=== PATIENT | female | born 1975 | race Caucasian/White ===

== ENCOUNTER 2018-04-06 22:39 | Emergency (ER) | payer SELFPAY ==
[2018-04-06 22:48] VITALS: BP 125/98; PULSE 114; RESP 18; O2SAT 100
--- NOTE | 2018-04-06 23:01 | DI.CT.S_ITS ---
PROCEDURE: CT HEAD/BRAIN WO CON INDICATIONS: mental status change TECHNIQUE: Noncontrast 4.5 mm thick angled axial sections acquired from the foramen magnum to the vertex, with coronal and sagittal reformats. For radiation dose reduction, the following was used: automated exposure control, adjustment of mA and/or kV according to patient size. COMPARISON: None. FINDINGS: Image quality: Excellent. CSF spaces: Basal cisterns are patent. No extra-axial fluid collections. Ventricles are normal in size and shape. Brain: No intracranial hemorrhage, mass, or mass effect. Chapman-white matter interface is preserved. Skull and face: Calvarium and visualized facial bones are intact, without suspicious lesions. Sinuses: Visualized sinuses and mastoids are clear. IMPRESSION: 1. No acute intracranial abnormality. Dictated by: Hunter Iglesias M.D. on 04/07/2018 at 9:50 Approved by: Hunter Iglesias M.D. on 04/07/2018 at 9:50
[2018-04-06 23:31] LABS: Add Manual Diff / Slide Review NO; Basophils Percent Auto 0.5 % (0-2); Eosinophils Percent Auto 1.7 % (2-4); Hemoglobin 17.8 g/dL (12.0-16.0); Lymphocytes Percent Auto 33.7 % (25-40); Mean Corpuscular HGB Conc 34.9 % (30-36); Mean Corpuscular Hemoglobin 31.7 PG (26-34); Neutrophils Absolute Auto 5900 /uL (3000-5900); Neutrophils Percent Auto 59.1 % (50-75); Platelet Count 223 X10^3/uL (150-400); Red Cell Distribution Width 13.8 % (11.6-14.8); White Blood Cell Count 9.9 X10^3/uL (4.5-11.0)
[2018-04-06 23:38] LABS: Alanine Aminotransferase 215 IU/L (9-52); Albumin 5.4 g/dL (3.5-5.0); Albumin Globulin Ratio 1.6 (1.0-2.8); Alkaline Phosphatase 94 U/L (38-126); Aspartate Aminotransferase 264 IU/L (14-36); Bilirubin Total 0.6 mg/dL (0.2-1.3); Calcium 9.9 mg/dL (8.4-10.2); Estimated Glomerular Filt Rate > 60.0 mL/min (>60); Globulin 3.4 g/dL (1.7-4.1); Glucose 89 mg/dL (70-100); HEMOLYSIS < 15 (0-50); Potassium 4.1 mmol/L (3.4-5.1); Sodium 150 mmol/L (137-145); Total Protein 8.8 g/dL (6.3-8.2)
[2018-04-06 23:47] LABS: Acetaminophen < 10 ug/dL (10-30); Salicylate < 1.0 mg/dL (<20)
[2018-04-06 23:56] LABS: Ethanol (ETOH) 414 mg/dL
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
[2018-04-07 02:35] VITALS: BP 158/100; PULSE 145; RESP 18; O2SAT 98
--- NOTE | 2018-04-16 21:17 | PC.NURSE ---
Pts son Barry picked her Rx up. Note on bag stated that pt or family member would be picking them up.
== END 2018-04-07 02:00 | disposition home or self-care (01) ==
PROVIDERS: Emergency Provider Emergency Medicine; PCP Physician Assistant
DX: F10.929 Alcohol use, unspecified with intoxication, unspecified (principal)
CPT/HCPCS: 36415; 70450; 80053; 80320; 80329; 85025; 99282; 99284; G0480

== ENCOUNTER → 2018-07-23 10:57 | Outpatient (CLI) | payer OTHER, MEDICAID, SELFPAY ==
[2018-07-23 11:26] LABS: Hemoglobin 15.6 g/dL (12.0-16.0); Mean Corpuscular HGB Conc 33.8 % (30-36); Mean Corpuscular Hemoglobin 30.6 PG (26-34); Mean Corpuscular Volume 90.5 fL (80-100); Platelet Count 268 X10^3/uL (150-400); Red Blood Cell Count 5.09 X10^6/uL (4.0-5.2); Red Cell Distribution Width 13.3 % (11.6-14.8); White Blood Cell Count 9.4 X10^3/uL (4.5-11.0)
[2018-07-23 11:44] LABS: Alanine Aminotransferase 24 IU/L (9-52); Albumin 5.1 g/dL (3.5-5.0); Albumin Globulin Ratio 1.8 (1.0-2.8); Alkaline Phosphatase 74 U/L (38-126); Aspartate Aminotransferase 21 IU/L (14-36); BUN Creatinine Ratio 15.7 (6-22); Bilirubin Total 0.3 mg/dL (0.2-1.3); Blood Urea Nitrogen 11 mg/dL (7-17); Calcium 10.1 mg/dL (8.4-10.2); Carbon Dioxide 33 mmol/L (22-32); Chloride 103 mmol/L (98-107); Estimated Glomerular Filt Rate > 60.0 mL/min (>60); Globulin 2.8 g/dL (1.7-4.1); Glucose 93 mg/dL (70-100); HEMOLYSIS < 15 (0-50); Potassium 4.3 mmol/L (3.4-5.1); Sodium 145 mmol/L (137-145); Total Protein 7.9 g/dL (6.3-8.2)
[2018-07-23 11:45] LABS: Neutrophils Absolute Manual 5264 /uL (3000-5900); Total Cells Counted 100
[2018-07-23 11:46] LABS: RBC Morphology Normal Morphology
[2018-07-23 18:39] LABS: Hepatitis B Surface Antigen NEGATIVE s/c (NEGATIVE)
[2018-07-23 18:57] LABS: HIV 1 and 2 Antibody NEGATIVE (NEGATIVE); Hep C Virus Ab w/Reflex Quant NEGATIVE s/c (NEGATIVE)
== END ==
PROVIDERS: PCP Physician Assistant; Visit Provider Nurse Practitioner Family
DX: Z77.21 Contact with and (suspected) exposure to potentially hazardous body fluids (principal)
CPT/HCPCS: 36415; 80053; 85025; 86703; 86803; 87340

== ENCOUNTER 2018-08-25 13:29 | Emergency (ER) | payer OTHER, MEDICAID, SELFPAY ==
[2018-08-25 13:49] VITALS: BP 140/94; PULSE 134; RESP 20; TEMP 37.9; O2SAT 96; BMI 18.8
--- NOTE | 2018-08-25 14:07 | ED.ABDPAIN ---
HPI - Abdominal Pain <CRICKET Kaur - Last Filed: 08/25/18 22:13> General Chief Complaint: Abdominal Pain Stated Complaint: lower left sided pain Time Seen by Provider: 08/25/18 14:07 Source: patient Mode of arrival: ambulatory Limitations: no limitations History of Present Illness HPI narrative: 42-year-old female with history of alcohol abuse and is an everyday smoker here for complaint of pain into her left lower abdominal area over the past 4 days. She has also had some nausea. She states that the pain is better after drinking alcohol. She denies any stressors of the pain. Last bowel movement was earlier today and was unremarkable. She denies any urinary symptoms. She reports decreased p.o. fluid intake. no vomiting. She denies any flank pain. No abnormal vaginal discharge. She states that she did not know she had a fever until she came here. No other concerns or complaints. Last alcohol and p.o. intake was just prior to arrival where she states she only drank small amount of alcohol. Related Data Home Medications Medication Instructions Recorded Confirmed diphenhydramine HCl [Banophen] 1 cap PO DAILY 08/25/18 Previous Rx's Medication Instructions Recorded gabapentin 600 mg tablet See Label Instructions PO .COMPLEX 07/30/18 #150 tab cephalexin 500 mg PO Q12H #14 cap 08/25/18 Allergies Allergy/AdvReac Type Severity Reaction Status Date / Time Sulfa (Sulfonamide Allergy Verified 08/25/18 13:53 Antibiotics) Review of Systems <CRICKET Kaur - Last Filed: 08/25/18 22:13> Constitutional Denies chills, Denies fever(s), Denies lethargy and Denies weakness Eyes Denies change in vision, Denies eye discharge, Denies irritation and Denies loss of vision ENT Ears, Nose, Mouth, and Throat: Denies change in voice, Denies neck pain and Denies sore throat Cardiovascular Denies chest pain, Denies irregular heart rhythm, Denies lightheadedness, Denies palpitations, Denies dyspnea, Denies dyspnea on exertion and Denies orthopnea Respiratory Denies cough, Denies dyspnea, Denies dyspnea on exertion and Denies wheezing Gastrointestinal Gastrointestinal: Reports abdominal pain Genitourinary Denies hematuria, Denies flank pain, Denies urinary incontinence and Denies urinary urgency Musculoskeletal Denies neck pain Integumentary/Breasts Denies pruritus, Denies erythema, Denies rash and Denies wounds Neurologic Denies confusion, Denies loss of vision and Denies weakness Psychiatric Denies anxiety, Denies confusion, Denies depression, Denies homicidal ideation and Denies suicidal ideation Endocrine Denies palpitations Allergic/Immunologic Denies wheezing Exam <CRICKET Kaur - Last Filed: 08/25/18 22:13> Initial Vital Signs Initial Vital Signs: Vital Signs Temperature 100.3 F H 08/25/18 13:49 Pulse Rate 134 H 08/25/18 13:49 Respiratory Rate 20 08/25/18 13:49 Blood Pressure 140/94 H 08/25/18 13:49 Pulse Oximetry 96 08/25/18 13:49 Const General: cooperative and well developed Nutritional Appearance: well nourished Orientation: alert, awake, oriented x3 and not confused HENAR Mouth: oral mucosae normal and moist mucous membranes Eyes General: appearance normal, both eyes and all related structures Eyelids: eyelids normal Conjunctivae: conjunctivae normal Sclera: sclerae normal Pupils: PERRL EOM: EOM intact bilaterally Resp Effort & Inspection: normal respiratory effort, able to speak in complete sentences, no respiratory distress and no use of accessory muscles Auscultation: clear to auscultation bilaterally, no rales, no rhonchi and no wheezes Cardio Rate: regular rate Rhythm: regular rhythm Heart Sounds: no click, no gallops, no murmurs and no rubs Pulses: normal peripheral pulses GI Inspection: non-distended Palpation: soft, no hepatosplenomegaly, No guarding, No pulsatile mass and tender ( left lower quadrant) Auscultation: normal bowel sounds General: No CVA tenderness Neuro General: alert, oriented x3, gait normal and no focal motor deficits Speech: speech normal <Christian Conteh DO - Last Filed: 08/26/18 07:16> Initial Vital Signs Initial Vital Signs: Vital Signs Temperature 100.3 F H 08/25/18 13:49 Pulse Rate 134 H 08/25/18 13:49 Respiratory Rate 20 08/25/18 13:49 Blood Pressure 140/94 H 08/25/18 13:49 Pulse Oximetry 96 08/25/18 13:49 Course <CRICKET Kaur - Last Filed: 08/25/18 22:13> Orders Ordered: Discontinued Medications Sodium Chloride (Normal Saline 0.9%) 1,000 mls @ 1,000 mls/hr IV BOLUS ONE Stop: 08/25/18 14:56 Last Infusion: 08/25/18 15:48 Dose: 0 mls/hr Admin: 08/25/18 14:18 Dose: 1,000 mls/hr Sodium Chloride (Normal Saline 0.9%) 1,000 mls @ 1,000 mls/hr IV BOLUS ONE Stop: 08/25/18 16:43 Last Infusion: 08/25/18 16:49 Dose: 0 mls/hr Admin: 08/25/18 16:05 Dose: 1,000 mls/hr Ceftriaxone Sodium/Dextrose (Rocephin) 1 gm in 50 mls @ 100 mls/hr IV NOW ONE Stop: 08/25/18 17:08 Last Infusion: 08/25/18 18:01 Dose: 0 mls/hr Admin: 08/25/18 17:01 Dose: 100 mls/hr Sodium Chloride (Normal Saline 0.9%) 1,000 mls @ 1,000 mls/hr IV BOLUS ONE Stop: 08/25/18 17:58 Last Infusion: 08/25/18 18:01 Dose: 0 mls/hr Admin: 08/25/18 17:01 Dose: 1,000 mls/hr Ketorolac Tromethamine (Toradol) 30 mg IV NOW ONE Stop: 08/25/18 16:04 Last Admin: 08/25/18 16:04 Dose: 30 mg Ondansetron HCl (Zofran) 4 mg IV NOW ONE Stop: 08/25/18 14:15 Last Admin: 08/25/18 14:17 Dose: 4 mg Vital Signs - 8 hr 08/25/18 14:57 08/25/18 17:00 08/25/18 17:59 Temperature 99.8 F H Pulse Rate 104 H 110 H 113 H Respiratory Rate 20 Blood Pressure [Right Arm] 129/84 129/79 150/87 H Pulse Oximetry 105 H 97 99 08/25/18 18:01 Temperature Pulse Rate Respiratory Rate 24 Blood Pressure [Right Arm] Pulse Oximetry <Christian Conteh DO - Last Filed: 08/26/18 07:16> Orders Ordered: Discontinued Medications Sodium Chloride (Normal Saline 0.9%) 1,000 mls @ 1,000 mls/hr IV BOLUS ONE Stop: 08/25/18 14:56 Last Infusion: 08/25/18 15:48 Dose: 0 mls/hr Admin: 08/25/18 14:18 Dose: 1,000 mls/hr Sodium Chloride (Normal Saline 0.9%) 1,000 mls @ 1,000 mls/hr IV BOLUS ONE Stop: 08/25/18 16:43 Last Infusion: 08/25/18 16:49 Dose: 0 mls/hr Admin: 08/25/18 16:05 Dose: 1,000 mls/hr Ceftriaxone Sodium/Dextrose (Rocephin) 1 gm in 50 mls @ 100 mls/hr IV NOW ONE Stop: 08/25/18 17:08 Last Infusion: 08/25/18 18:01 Dose: 0 mls/hr Admin: 08/25/18 17:01 Dose: 100 mls/hr Sodium Chloride (Normal Saline 0.9%) 1,000 mls @ 1,000 mls/hr IV BOLUS ONE Stop: 08/25/18 17:58 Last Infusion: 08/25/18 18:01 Dose: 0 mls/hr Admin: 08/25/18 17:01 Dose: 1,000 mls/hr Ketorolac Tromethamine (Toradol) 30 mg IV NOW ONE Stop: 08/25/18 16:04 Last Admin: 08/25/18 16:04 Dose: 30 mg Ondansetron HCl (Zofran) 4 mg IV NOW ONE Stop: 08/25/18 14:15 Last Admin: 08/25/18 14:17 Dose: 4 mg Vital Signs - 8 hr 08/25/18 14:57 08/25/18 17:00 08/25/18 17:59 Temperature 99.8 F H Pulse Rate 104 H 110 H 113 H Respiratory Rate 20 Blood Pressure [Right Arm] 129/84 129/79 150/87 H Pulse Oximetry 105 H 97 99 08/25/18 18:01 Temperature Pulse Rate Respiratory Rate 24 Blood Pressure [Right Arm] Pulse Oximetry MDM - Abdominal Pain <CRICKET Kaur - Last Filed: 08/25/18 22:13> Differential Diagnosis Differential diagnosis: Likely abdominal pain Lab Data Result diagrams: 08/25/18 14:05 08/25/18 14:05 Lab Results 08/25/18 08/25/18 08/25/18 Range/Units 14:05 14:05 14:05 WBC 10.1 (4.5-11.0) X10^3/uL RBC 5.48 H (4.0-5.2) X10^6/uL Hgb 16.5 H (12.0-16.0) g/dL Hct 48.7 H (36-46) % MCV 88.8 (80-100) fL MCH 30.0 (26-34) PG MCHC 33.8 (30-36) % RDW 13.5 (11.6-14.8) % Plt Count 336 (150-400) X10^3/uL Neut % (Auto) 75.5 H (50-75) % Lymph % (Auto) 19.4 L (25-40) % Brooks % (Auto) 4.2 (3-14) % Eos % (Auto) 0.1 L (2-4) % Baso % (Auto) 0.8 (0-2) % Neut # (Auto) 7600 H (2705-4109) /uL PT 10.0 L (10.1-12.7) SECONDS INR 0.9 (0.9-1.3) APTT 26 L (26.4-36.2) SECONDS Sodium (137-145) mmol/L Potassium (3.4-5.1) mmol/L Chloride (98-107) mmol/L Carbon Dioxide (22-32) mmol/L BUN (7-17) mg/dL Creatinine (0.52-1.04) mg/dL Estimated GFR (>60) mL/min BUN/Creatinine Ratio (6-22) Glucose (70-100) mg/dL Lactate (0.7-2.1) mmol/L Calcium (8.4-10.2) mg/dL Total Bilirubin (0.2-1.3) mg/dL AST (14-36) IU/L ALT (9-52) IU/L Alkaline Phosphatase (38-126) U/L Total Protein (6.3-8.2) g/dL Albumin (3.5-5.0) g/dL Globulin (1.7-4.1) g/dL Albumin/Globulin Ratio (1.0-2.8) Lipase (23-300) U/L Procalcitonin < 0.05 (<0.5) ng/mL Urine RBC (0-5/HPF) Urine WBC (0-5/HPF) Ur Squamous Epith Cells Amorphous Sediment Urine Bacteria (None) Granular Casts (None) Ur Culture Indicated? Micro UA Comment Ethyl Alcohol mg/dL 08/25/18 08/25/18 08/25/18 Range/Units 14:05 14:05 14:05 WBC (4.5-11.0) X10^3/uL RBC (4.0-5.2) X10^6/uL Hgb (12.0-16.0) g/dL Hct (36-46) % MCV (80-100) fL MCH (26-34) PG MCHC (30-36) % RDW (11.6-14.8) % Plt Count (150-400) X10^3/uL Neut % (Auto) (50-75) % Lymph % (Auto) (25-40) % Brooks % (Auto) (3-14) % Eos % (Auto) (2-4) % Baso % (Auto) (0-2) % Neut # (Auto) (8172-2976) /uL PT (10.1-12.7) SECONDS INR (0.9-1.3) APTT (26.4-36.2) SECONDS Sodium 144 (137-145) mmol/L Potassium 4.1 (3.4-5.1) mmol/L Chloride 101 (98-107) mmol/L Carbon Dioxide 18 L (22-32) mmol/L BUN 16 (7-17) mg/dL Creatinine 0.70 (0.52-1.04) mg/dL Estimated GFR > 60.0 (>60) mL/min BUN/Creatinine Ratio 22.9 H (6-22) Glucose 129 H (70-100) mg/dL Lactate 4.6 H (0.7-2.1) mmol/L Calcium 9.1 (8.4-10.2) mg/dL Total Bilirubin 0.8 (0.2-1.3) mg/dL AST 48 H (14-36) IU/L ALT 30 (9-52) IU/L Alkaline Phosphatase 81 (38-126) U/L Total Protein 8.0 (6.3-8.2) g/dL Albumin 5.4 H (3.5-5.0) g/dL Globulin 2.6 (1.7-4.1) g/dL Albumin/Globulin Ratio 2.1 (1.0-2.8) Lipase 84 (23-300) U/L Procalcitonin (<0.5) ng/mL Urine RBC (0-5/HPF) Urine WBC (0-5/HPF) Ur Squamous Epith Cells Amorphous Sediment Urine Bacteria (None) Granular Casts (None) Ur Culture Indicated? Micro UA Comment Ethyl Alcohol 268 mg/dL 08/25/18 08/25/18 Range/Units 16:50 Unknown WBC (4.5-11.0) X10^3/uL RBC (4.0-5.2) X10^6/uL Hgb (12.0-16.0) g/dL Hct (36-46) % MCV (80-100) fL MCH (26-34) PG MCHC (30-36) % RDW (11.6-14.8) % Plt Count (150-400) X10^3/uL Neut % (Auto) (50-75) % Lymph % (Auto) (25-40) % Brooks % (Auto) (3-14) % Eos % (Auto) (2-4) % Baso % (Auto) (0-2) % Neut # (Auto) (2180-3862) /uL PT (10.1-12.7) SECONDS INR (0.9-1.3) APTT (26.4-36.2) SECONDS Sodium (137-145) mmol/L Potassium (3.4-5.1) mmol/L Chloride (98-107) mmol/L Carbon Dioxide (22-32) mmol/L BUN (7-17) mg/dL Creatinine (0.52-1.04) mg/dL Estimated GFR (>60) mL/min BUN/Creatinine Ratio (6-22) Glucose (70-100) mg/dL Lactate 3.7 H (0.7-2.1) mmol/L Calcium (8.4-10.2) mg/dL Total Bilirubin (0.2-1.3) mg/dL AST (14-36) IU/L ALT (9-52) IU/L Alkaline Phosphatase (38-126) U/L Total Protein (6.3-8.2) g/dL Albumin (3.5-5.0) g/dL Globulin (1.7-4.1) g/dL Albumin/Globulin Ratio (1.0-2.8) Lipase (23-300) U/L Procalcitonin (<0.5) ng/mL Urine RBC 0-1/hpf (0-5/HPF) Urine WBC 5-10/hpf H (0-5/HPF) Ur Squamous Epith Cells 5-10 /hpf H Amorphous Sediment 1+ Urine Bacteria Few (2-10) H (None) Granular Casts 5-10/lpf (None) Ur Culture Indicated? Specimen cultured Micro UA Comment Not Reportable Ethyl Alcohol mg/dL Point of care testing: Urine Dip Bedside Urine Glucose Negative Bedside Urine Bilirubin - Negative Bedside Urine Ketone ++ 40 Urine Specific [place] 1.030 Bedside Urine Occult Blood +/- Bedside Urine pH 6.0 Bedside Urine Protein + 30 Bedside Urine Urobilinogen - Negative Bedside Urine Nitrite - Negative Bedside Urine Leukocytes - Negative Esterase MDM Narrative Medical decision making narrative: CT of the abdomen shows a fatty infiltrate to the liver however is negative for any acute findings. CBC shows elevated H&H otherwise is unremarkable. Chem panel shows elevated lactate with negative procalcitonin. AST is mildly elevated at 48. urinalysis indicates urinary tract infection.. She was given fluids in the emergency room which help normalize her heart rate. after fluids repeat lactate was obtained and was decreased to 3.7. Due to no elevated white count and negative procalcitonin along with negative CT doubtful that this is septic. laboratory results indicate dehydration which is most likely due to alcohol use. She is given Rocephin to treat urinary tract infection in the emergency room. offered admission to patient due to elevated heart rate fever and elevated lactate she states she would rather go home. She is also prescribed Keflex orally. Follow up with primary care for the next 2 days for re-evaluation. Differential for left lower quadrant abdominal pain is due to viral illness. For any worsening symptoms return to the emergency room. <Christian Conteh DO - Last Filed: 08/26/18 07:16> Lab Data Lab Results 08/25/18 08/25/18 08/25/18 Range/Units 14:05 14:05 14:05 WBC 10.1 (4.5-11.0) X10^3/uL RBC 5.48 H (4.0-5.2) X10^6/uL Hgb 16.5 H (12.0-16.0) g/dL Hct 48.7 H (36-46) % MCV 88.8 (80-100) fL MCH 30.0 (26-34) PG MCHC 33.8 (30-36) % RDW 13.5 (11.6-14.8) % Plt Count 336 (150-400) X10^3/uL Neut % (Auto) 75.5 H (50-75) % Lymph % (Auto) 19.4 L (25-40) % Brooks % (Auto) 4.2 (3-14) % Eos % (Auto) 0.1 L (2-4) % Baso % (Auto) 0.8 (0-2) % Neut # (Auto) 7600 H (7073-7885) /uL PT 10.0 L (10.1-12.7) SECONDS INR 0.9 (0.9-1.3) APTT 26 L (26.4-36.2) SECONDS Sodium (137-145) mmol/L Potassium (3.4-5.1) mmol/L Chloride (98-107) mmol/L Carbon Dioxide (22-32) mmol/L BUN (7-17) mg/dL Creatinine (0.52-1.04) mg/dL Estimated GFR (>60) mL/min BUN/Creatinine Ratio (6-22) Glucose (70-100) mg/dL Lactate (0.7-2.1) mmol/L Calcium (8.4-10.2) mg/dL Total Bilirubin (0.2-1.3) mg/dL AST (14-36) IU/L ALT (9-52) IU/L Alkaline Phosphatase (38-126) U/L Total Protein (6.3-8.2) g/dL Albumin (3.5-5.0) g/dL Globulin (1.7-4.1) g/dL Albumin/Globulin Ratio (1.0-2.8) Lipase (23-300) U/L Procalcitonin < 0.05 (<0.5) ng/mL Urine RBC (0-5/HPF) Urine WBC (0-5/HPF) Ur Squamous Epith Cells Amorphous Sediment Urine Bacteria (None) Granular Casts (None) Ur Culture Indicated? Micro UA Comment Ethyl Alcohol mg/dL 08/25/18 08/25/18 08/25/18 Range/Units 14:05 14:05 14:05 WBC (4.5-11.0) X10^3/uL RBC (4.0-5.2) X10^6/uL Hgb (12.0-16.0) g/dL Hct (36-46) % MCV (80-100) fL MCH (26-34) PG MCHC (30-36) % RDW (11.6-14.8) % Plt Count (150-400) X10^3/uL Neut % (Auto) (50-75) % Lymph % (Auto) (25-40) % Brooks % (Auto) (3-14) % Eos % (Auto) (2-4) % Baso % (Auto) (0-2) % Neut # (Auto) (2206-4589) /uL PT (10.1-12.7) SECONDS INR (0.9-1.3) APTT (26.4-36.2) SECONDS Sodium 144 (137-145) mmol/L Potassium 4.1 (3.4-5.1) mmol/L Chloride 101 (98-107) mmol/L Carbon Dioxide 18 L (22-32) mmol/L BUN 16 (7-17) mg/dL Creatinine 0.70 (0.52-1.04) mg/dL Estimated GFR > 60.0 (>60) mL/min BUN/Creatinine Ratio 22.9 H (6-22) Glucose 129 H (70-100) mg/dL Lactate 4.6 H (0.7-2.1) mmol/L Calcium 9.1 (8.4-10.2) mg/dL Total Bilirubin 0.8 (0.2-1.3) mg/dL AST 48 H (14-36) IU/L ALT 30 (9-52) IU/L Alkaline Phosphatase 81 (38-126) U/L Total Protein 8.0 (6.3-8.2) g/dL Albumin 5.4 H (3.5-5.0) g/dL Globulin 2.6 (1.7-4.1) g/dL Albumin/Globulin Ratio 2.1 (1.0-2.8) Lipase 84 (23-300) U/L Procalcitonin (<0.5) ng/mL Urine RBC (0-5/HPF) Urine WBC (0-5/HPF) Ur Squamous Epith Cells Amorphous Sediment Urine Bacteria (None) Granular Casts (None) Ur Culture Indicated? Micro UA Comment Ethyl Alcohol 268 mg/dL 08/25/18 08/25/18 Range/Units 16:50 Unknown WBC (4.5-11.0) X10^3/uL RBC (4.0-5.2) X10^6/uL Hgb (12.0-16.0) g/dL Hct (36-46) % MCV (80-100) fL MCH (26-34) PG MCHC (30-36) % RDW (11.6-14.8) % Plt Count (150-400) X10^3/uL Neut % (Auto) (50-75) % Lymph % (Auto) (25-40) % Brooks % (Auto) (3-14) % Eos % (Auto) (2-4) % Baso % (Auto) (0-2) % Neut # (Auto) (6568-4063) /uL PT (10.1-12.7) SECONDS INR (0.9-1.3) APTT (26.4-36.2) SECONDS Sodium (137-145) mmol/L Potassium (3.4-5.1) mmol/L Chloride (98-107) mmol/L Carbon Dioxide (22-32) mmol/L BUN (7-17) mg/dL Creatinine (0.52-1.04) mg/dL Estimated GFR (>60) mL/min BUN/Creatinine Ratio (6-22) Glucose (70-100) mg/dL Lactate 3.7 H (0.7-2.1) mmol/L Calcium (8.4-10.2) mg/dL Total Bilirubin (0.2-1.3) mg/dL AST (14-36) IU/L ALT (9-52) IU/L Alkaline Phosphatase (38-126) U/L Total Protein (6.3-8.2) g/dL Albumin (3.5-5.0) g/dL Globulin (1.7-4.1) g/dL Albumin/Globulin Ratio (1.0-2.8) Lipase (23-300) U/L Procalcitonin (<0.5) ng/mL Urine RBC 0-1/hpf (0-5/HPF) Urine WBC 5-10/hpf H (0-5/HPF) Ur Squamous Epith Cells 5-10 /hpf H Amorphous Sediment 1+ Urine Bacteria Few (2-10) H (None) Granular Casts 5-10/lpf (None) Ur Culture Indicated? Specimen cultured Micro UA Comment Not Reportable Ethyl Alcohol mg/dL Point of care testing: Urine Dip Bedside Urine Glucose Negative Bedside Urine Bilirubin - Negative Bedside Urine Ketone ++ 40 Urine Specific [place] 1.030 Bedside Urine Occult Blood +/- Bedside Urine pH 6.0 Bedside Urine Protein + 30 Bedside Urine Urobilinogen - Negative Bedside Urine Nitrite - Negative Bedside Urine Leukocytes - Negative Esterase Discharge Plan Departure Patient Disposition: Home Clinical Impression: Urinary tract infection Discharge Date/Time: 08/25/18 18:01 Interventions: ED Discharge Assessment Last Done: 08/25/18 17:59 Instructions: DI for Abdominal Pain-Adult Activity Restrictions/Additional Instructions: Laboratory results indicate dehydration. year given fluids here in the emergency room. Recommend drinking plenty of fluids not containing alcohol and reducing alcohol intake. urinalysis indicates urinary tract infection. You have been placed on antibiotics use as directed. follow up with her primary care provider in the next couple of days for re-evaluation. If any worsening symptoms return to the emergency room. Use ibuprofen as needed for any discomfort or fever. Prescriptions: New cephalexin 500 mg capsule 500 mg PO Q12H Qty: 14 RF: 0 No Action gabapentin [Neurontin] 600 mg tablet See Label Instructions PO .COMPLEX Qty: 150 RF: 3 diphenhydramine HCl [Banophen] 50 mg capsule 1 cap PO DAILY RF: 0 Referrals: Daphne Calvillo PA-C [[facility]] - <Christian Conteh DO - Last Filed: 08/26/18 07:16> Cosign ED Attending Cosignature Attestation: I was available for consultation during this patient's emergency department encounter
[2018-08-25] MEDS: ONDANSETRON 4 MG/2 ML INJ IV (14:17)
[2018-08-25] MEDS: SODIUM CHLORIDE 0.9% 1,000 ML 1000 ML IV ×3 (14:18→17:01)
[2018-08-25 14:27] LABS: Add Manual Diff / Slide Review NO; Basophils Percent Auto 0.8 % (0-2); Eosinophils Percent Auto 0.1 % (2-4); Hematocrit 48.7 % (36-46); Hemoglobin 16.5 g/dL (12.0-16.0); Lymphocytes Percent Auto 19.4 % (25-40); Mean Corpuscular HGB Conc 33.8 % (30-36); Mean Corpuscular Volume 88.8 fL (80-100); Monocytes Percent Auto 4.2 % (3-14); Neutrophils Absolute Auto 7600 /uL (3000-5900); Neutrophils Percent Auto 75.5 % (50-75); Platelet Count 336 X10^3/uL (150-400); Red Blood Cell Count 5.48 X10^6/uL (4.0-5.2); Red Cell Distribution Width 13.5 % (11.6-14.8); White Blood Cell Count 10.1 X10^3/uL (4.5-11.0)
[2018-08-25 14:30] LABS: INR 0.9 (0.9-1.3)
[2018-08-25 14:33] LABS: PTT Partial Thromboplastin Tim 26 SECONDS (26.4-36.2)
[2018-08-25 14:35] LABS: Ethanol (ETOH) 268 mg/dL; Lactate (Lactic Acid) 4.6 mmol/L (0.7-2.1)
[2018-08-25 14:39] LABS: Alanine Aminotransferase 30 IU/L (9-52); Albumin 5.4 g/dL (3.5-5.0); Albumin Globulin Ratio 2.1 (1.0-2.8); Alkaline Phosphatase 81 U/L (38-126); Aspartate Aminotransferase 48 IU/L (14-36); BUN Creatinine Ratio 22.9 (6-22); Bilirubin Total 0.8 mg/dL (0.2-1.3); Blood Urea Nitrogen 16 mg/dL (7-17); Calcium 9.1 mg/dL (8.4-10.2); Carbon Dioxide 18 mmol/L (22-32); Chloride 101 mmol/L (98-107); Estimated Glomerular Filt Rate > 60.0 mL/min (>60); Globulin 2.6 g/dL (1.7-4.1); Glucose 129 mg/dL (70-100); HEMOLYSIS 31 (0-50); Lipase 84 U/L (23-300); Potassium 4.1 mmol/L (3.4-5.1); Sodium 144 mmol/L (137-145)
--- NOTE | 2018-08-25 14:51 | DI.CT.S_ITS ---
PROCEDURE: CT ABDOMEN PELVIS W CON INDICATIONS: left lower quadrant pain TECHNIQUE: After the administration of intravenous contrast, 5 mm thick sections acquired from the diaphragm to the symphysis. 5 mm coronal and sagittal reformats were acquired. For radiation dose reduction, the following was used: automated exposure control, adjustment of mA and/or kV according to patient size. COMPARISON: [facility], , CT ABDOMEN/PELVIS WITH CONTRAST, 06/09/2006, 12:43. FINDINGS: Image quality: Excellent. ABDOMEN: Lung bases: Lung bases are clear. Heart size is normal. Solid organs: Liver is normal in size and enhancement. The liver appears fatty infiltrated. Gallbladder appears normal. Biliary system is non dilated. Pancreas enhances normally. Spleen is normal in size and enhancement. No adrenal nodules. Kidneys demonstrate normal size and enhancement, without hydronephrosis. Peritoneum and bowel: Bowel loops demonstrate normal wall thickness and caliber. No free fluid or air. Nodes and vessels: No retroperitoneal or mesenteric adenopathy by size criteria. Aorta and inferior vena cava are normal in size. Miscellaneous: No ventral hernias. PELVIS: Genitourinary: Bladder wall thickness is normal. The uterus and ovaries are not visualized. Miscellaneous: No inguinal hernias or adenopathy. Bones: No suspicious bony lesions. No vertebral body compression fractures. IMPRESSION: Apparent fatty infiltration within the liver but no sign of cirrhosis or portal hypertension is found. No ascites is seen. Within the pelvis no adnexal cystic or solid mass is found. The uterus is not visualized as a discrete entity nor are the ovaries bilaterally. A source of current reported left lower quadrant pain is not found. Dictated by: Ken Arguelles M.D. on 08/25/2018 at 15:09 Approved by: Ken Arguelles M.D. on 08/25/2018 at 15:13
[2018-08-25 14:57] VITALS: BP 129/84; PULSE 104; RESP 20; TEMP 37.7; O2SAT 105
[2018-08-25 14:59] LABS: Procalcitonin < 0.05 ng/mL (<0.5)
--- NOTE | 2018-08-25 16:02 | PC.NURSE ---
nausea improved. Continues to have abd pain. Medicated w/ toradol IV.
[2018-08-25 16:04] LABS: Bacteria Urine Few (2-10); Granular Casts Urine 5-10/LPF; RBC Urine 0-1/HPF (0-5/HPF); Squamous Epithelial Cell Urine 5-10 /HPF; WBC Urine 5-10/HPF (0-5/HPF)
[2018-08-25] MEDS: KETOROLAC 60 MG/2 ML VIAL 30 MG IV (16:04)
[2018-08-25 16:05] LABS: Amorphous Sediment Urine 1+; Culture Indicated Urine Specimen Cultured
[2018-08-25 17:00] VITALS: BP 129/79; PULSE 110; O2SAT 97
[2018-08-25] MEDS: CEFTRIAXONE 1 GM/50 ML FROZ.PIGGY IV (17:01)
[2018-08-25 17:12] LABS: Lactate (Lactic Acid) 3.7 mmol/L (0.7-2.1)
--- NOTE | 2018-08-25 17:31 | ED_ITS ---
HPI - Abdominal Pain <CRICKET Kaur - Last Filed: 08/25/18 22:13> General Chief Complaint: Abdominal Pain Stated Complaint: lower left sided pain Time Seen by Provider: 08/25/18 14:07 Source: patient Mode of arrival: ambulatory Limitations: no limitations History of Present Illness HPI narrative: 42-year-old female with history of alcohol abuse and is an everyday smoker here for complaint of pain into her left lower abdominal area over the past 4 days. She has also had some nausea. She states that the pain is better after drinking alcohol. She denies any stressors of the pain. Last bowel movement was earlier today and was unremarkable. She denies any urinary symptoms. She reports decreased p.o. fluid intake. no vomiting. She denies any flank pain. No abnormal vaginal discharge. She states that she did not know she had a fever until she came here. No other concerns or complaints. Last alcohol and p.o. intake was just prior to arrival where she states she only drank small amount of alcohol. Related Data Home Medications Medication Instructions Recorded Confirmed diphenhydramine HCl [Banophen] 1 cap PO DAILY 08/25/18 Previous Rx's Medication Instructions Recorded gabapentin 600 mg tablet See Label Instructions PO .COMPLEX 07/30/18 #150 tab cephalexin 500 mg PO Q12H #14 cap 08/25/18 Allergies Allergy/AdvReac Type Severity Reaction Status Date / Time Sulfa (Sulfonamide Allergy Verified 08/25/18 13:53 Antibiotics) Review of Systems <CRICKET Kaur - Last Filed: 08/25/18 22:13> Constitutional Denies chills, Denies fever(s), Denies lethargy and Denies weakness Eyes Denies change in vision, Denies eye discharge, Denies irritation and Denies loss of vision ENT Ears, Nose, Mouth, and Throat: Denies change in voice, Denies neck pain and Denies sore throat Cardiovascular Denies chest pain, Denies irregular heart rhythm, Denies lightheadedness, Denies palpitations, Denies dyspnea, Denies dyspnea on exertion and Denies orthopnea Respiratory Denies cough, Denies dyspnea, Denies dyspnea on exertion and Denies wheezing Gastrointestinal Gastrointestinal: Reports abdominal pain Genitourinary Denies hematuria, Denies flank pain, Denies urinary incontinence and Denies urinary urgency Musculoskeletal Denies neck pain Integumentary/Breasts Denies pruritus, Denies erythema, Denies rash and Denies wounds Neurologic Denies confusion, Denies loss of vision and Denies weakness Psychiatric Denies anxiety, Denies confusion, Denies depression, Denies homicidal ideation and Denies suicidal ideation Endocrine Denies palpitations Allergic/Immunologic Denies wheezing Exam <CRICKET Kaur - Last Filed: 08/25/18 22:13> Initial Vital Signs Initial Vital Signs: Vital Signs Temperature 100.3 F H 08/25/18 13:49 Pulse Rate 134 H 08/25/18 13:49 Respiratory Rate 20 08/25/18 13:49 Blood Pressure 140/94 H 08/25/18 13:49 Pulse Oximetry 96 08/25/18 13:49 Const General: cooperative and well developed Nutritional Appearance: well nourished Orientation: alert, awake, oriented x3 and not confused HENMN Mouth: oral mucosae normal and moist mucous membranes Eyes General: appearance normal, both eyes and all related structures Eyelids: eyelids normal Conjunctivae: conjunctivae normal Sclera: sclerae normal Pupils: PERRL EOM: EOM intact bilaterally Resp Effort & Inspection: normal respiratory effort, able to speak in complete sentences, no respiratory distress and no use of accessory muscles Auscultation: clear to auscultation bilaterally, no rales, no rhonchi and no wheezes Cardio Rate: regular rate Rhythm: regular rhythm Heart Sounds: no click, no gallops, no murmurs and no rubs Pulses: normal peripheral pulses GI Inspection: non-distended Palpation: soft, no hepatosplenomegaly, No guarding, No pulsatile mass and tender ( left lower quadrant) Auscultation: normal bowel sounds General: No CVA tenderness Neuro General: alert, oriented x3, gait normal and no focal motor deficits Speech: speech normal <Christian Conteh DO - Last Filed: 08/26/18 07:16> Initial Vital Signs Initial Vital Signs: Vital Signs Temperature 100.3 F H 08/25/18 13:49 Pulse Rate 134 H 08/25/18 13:49 Respiratory Rate 20 08/25/18 13:49 Blood Pressure 140/94 H 08/25/18 13:49 Pulse Oximetry 96 08/25/18 13:49 Course <CRICKET Kaur - Last Filed: 08/25/18 22:13> Orders Ordered: Discontinued Medications Sodium Chloride (Normal Saline 0.9%) 1,000 mls @ 1,000 mls/hr IV BOLUS ONE Stop: 08/25/18 14:56 Last Infusion: 08/25/18 15:48 Dose: 0 mls/hr Admin: 08/25/18 14:18 Dose: 1,000 mls/hr Sodium Chloride (Normal Saline 0.9%) 1,000 mls @ 1,000 mls/hr IV BOLUS ONE Stop: 08/25/18 16:43 Last Infusion: 08/25/18 16:49 Dose: 0 mls/hr Admin: 08/25/18 16:05 Dose: 1,000 mls/hr Ceftriaxone Sodium/Dextrose (Rocephin) 1 gm in 50 mls @ 100 mls/hr IV NOW ONE Stop: 08/25/18 17:08 Last Infusion: 08/25/18 18:01 Dose: 0 mls/hr Admin: 08/25/18 17:01 Dose: 100 mls/hr Sodium Chloride (Normal Saline 0.9%) 1,000 mls @ 1,000 mls/hr IV BOLUS ONE Stop: 08/25/18 17:58 Last Infusion: 08/25/18 18:01 Dose: 0 mls/hr Admin: 08/25/18 17:01 Dose: 1,000 mls/hr Ketorolac Tromethamine (Toradol) 30 mg IV NOW ONE Stop: 08/25/18 16:04 Last Admin: 08/25/18 16:04 Dose: 30 mg Ondansetron HCl (Zofran) 4 mg IV NOW ONE Stop: 08/25/18 14:15 Last Admin: 08/25/18 14:17 Dose: 4 mg Vital Signs - 8 hr 08/25/18 14:57 08/25/18 17:00 08/25/18 17:59 Temperature 99.8 F H Pulse Rate 104 H 110 H 113 H Respiratory Rate 20 Blood Pressure [Right Arm] 129/84 129/79 150/87 H Pulse Oximetry 105 H 97 99 08/25/18 18:01 Temperature Pulse Rate Respiratory Rate 24 Blood Pressure [Right Arm] Pulse Oximetry <Christian Conteh DO - Last Filed: 08/26/18 07:16> Orders Ordered: Discontinued Medications Sodium Chloride (Normal Saline 0.9%) 1,000 mls @ 1,000 mls/hr IV BOLUS ONE Stop: 08/25/18 14:56 Last Infusion: 08/25/18 15:48 Dose: 0 mls/hr Admin: 08/25/18 14:18 Dose: 1,000 mls/hr Sodium Chloride (Normal Saline 0.9%) 1,000 mls @ 1,000 mls/hr IV BOLUS ONE Stop: 08/25/18 16:43 Last Infusion: 08/25/18 16:49 Dose: 0 mls/hr Admin: 08/25/18 16:05 Dose: 1,000 mls/hr Ceftriaxone Sodium/Dextrose (Rocephin) 1 gm in 50 mls @ 100 mls/hr IV NOW ONE Stop: 08/25/18 17:08 Last Infusion: 08/25/18 18:01 Dose: 0 mls/hr Admin: 08/25/18 17:01 Dose: 100 mls/hr Sodium Chloride (Normal Saline 0.9%) 1,000 mls @ 1,000 mls/hr IV BOLUS ONE Stop: 08/25/18 17:58 Last Infusion: 08/25/18 18:01 Dose: 0 mls/hr Admin: 08/25/18 17:01 Dose: 1,000 mls/hr Ketorolac Tromethamine (Toradol) 30 mg IV NOW ONE Stop: 08/25/18 16:04 Last Admin: 08/25/18 16:04 Dose: 30 mg Ondansetron HCl (Zofran) 4 mg IV NOW ONE Stop: 08/25/18 14:15 Last Admin: 08/25/18 14:17 Dose: 4 mg Vital Signs - 8 hr 08/25/18 14:57 08/25/18 17:00 08/25/18 17:59 Temperature 99.8 F H Pulse Rate 104 H 110 H 113 H Respiratory Rate 20 Blood Pressure [Right Arm] 129/84 129/79 150/87 H Pulse Oximetry 105 H 97 99 08/25/18 18:01 Temperature Pulse Rate Respiratory Rate 24 Blood Pressure [Right Arm] Pulse Oximetry MDM - Abdominal Pain <CRICKET Kaur - Last Filed: 08/25/18 22:13> Differential Diagnosis Differential diagnosis: Likely abdominal pain Lab Data Result diagrams: 08/25/18 14:05 08/25/18 14:05 Lab Results 08/25/18 08/25/18 08/25/18 Range/Units 14:05 14:05 14:05 WBC 10.1 (4.5-11.0) X10^3/uL RBC 5.48 H (4.0-5.2) X10^6/uL Hgb 16.5 H (12.0-16.0) g/dL Hct 48.7 H (36-46) % MCV 88.8 (80-100) fL MCH 30.0 (26-34) PG MCHC 33.8 (30-36) % RDW 13.5 (11.6-14.8) % Plt Count 336 (150-400) X10^3/uL Neut % (Auto) 75.5 H (50-75) % Lymph % (Auto) 19.4 L (25-40) % [place]anner % (Auto) 4.2 (3-14) % Eos % (Auto) 0.1 L (2-4) % Baso % (Auto) 0.8 (0-2) % Neut # (Auto) 7600 H (3276-8944) /uL PT 10.0 L (10.1-12.7) SECONDS INR 0.9 (0.9-1.3) APTT 26 L (26.4-36.2) SECONDS Sodium (137-145) mmol/L Potassium (3.4-5.1) mmol/L Chloride (98-107) mmol/L Carbon Dioxide (22-32) mmol/L BUN (7-17) mg/dL Creatinine (0.52-1.04) mg/dL Estimated GFR (>60) mL/min BUN/Creatinine Ratio (6-22) Glucose (70-100) mg/dL Lactate (0.7-2.1) mmol/L Calcium (8.4-10.2) mg/dL Total Bilirubin (0.2-1.3) mg/dL AST (14-36) IU/L ALT (9-52) IU/L Alkaline Phosphatase (38-126) U/L Total Protein (6.3-8.2) g/dL Albumin (3.5-5.0) g/dL Globulin (1.7-4.1) g/dL Albumin/Globulin Ratio (1.0-2.8) Lipase (23-300) U/L Procalcitonin < 0.05 (<0.5) ng/mL Urine RBC (0-5/HPF) Urine WBC (0-5/HPF) Ur Squamous Epith Cells Amorphous Sediment Urine Bacteria (None) Granular Casts (None) Ur Culture Indicated? Micro UA Comment Ethyl Alcohol mg/dL 08/25/18 08/25/18 08/25/18 Range/Units 14:05 14:05 14:05 WBC (4.5-11.0) X10^3/uL RBC (4.0-5.2) X10^6/uL Hgb (12.0-16.0) g/dL Hct (36-46) % MCV (80-100) fL MCH (26-34) PG MCHC (30-36) % RDW (11.6-14.8) % Plt Count (150-400) X10^3/uL Neut % (Auto) (50-75) % Lymph % (Auto) (25-40) % Banner % (Auto) (3-14) % Eos % (Auto) (2-4) % Baso % (Auto) (0-2) % Neut # (Auto) (1942-3976) /uL PT (10.1-12.7) SECONDS INR (0.9-1.3) APTT (26.4-36.2) SECONDS Sodium 144 (137-145) mmol/L Potassium 4.1 (3.4-5.1) mmol/L Chloride 101 (98-107) mmol/L Carbon Dioxide 18 L (22-32) mmol/L BUN 16 (7-17) mg/dL Creatinine 0.70 (0.52-1.04) mg/dL Estimated GFR > 60.0 (>60) mL/min BUN/Creatinine Ratio 22.9 H (6-22) Glucose 129 H (70-100) mg/dL Lactate 4.6 H (0.7-2.1) mmol/L Calcium 9.1 (8.4-10.2) mg/dL Total Bilirubin 0.8 (0.2-1.3) mg/dL AST 48 H (14-36) IU/L ALT 30 (9-52) IU/L Alkaline Phosphatase 81 (38-126) U/L Total Protein 8.0 (6.3-8.2) g/dL Albumin 5.4 H (3.5-5.0) g/dL Globulin 2.6 (1.7-4.1) g/dL Albumin/Globulin Ratio 2.1 (1.0-2.8) Lipase 84 (23-300) U/L Procalcitonin (<0.5) ng/mL Urine RBC (0-5/HPF) Urine WBC (0-5/HPF) Ur Squamous Epith Cells Amorphous Sediment Urine Bacteria (None) Granular Casts (None) Ur Culture Indicated? Micro UA Comment Ethyl Alcohol 268 mg/dL 08/25/18 08/25/18 Range/Units 16:50 Unknown WBC (4.5-11.0) X10^3/uL RBC (4.0-5.2) X10^6/uL Hgb (12.0-16.0) g/dL Hct (36-46) % MCV (80-100) fL MCH (26-34) PG MCHC (30-36) % RDW (11.6-14.8) % Plt Count (150-400) X10^3/uL Neut % (Auto) (50-75) % Lymph % (Auto) (25-40) % Banner % (Auto) (3-14) % Eos % (Auto) (2-4) % Baso % (Auto) (0-2) % Neut # (Auto) (3056-0464) /uL PT (10.1-12.7) SECONDS INR (0.9-1.3) APTT (26.4-36.2) SECONDS Sodium (137-145) mmol/L Potassium (3.4-5.1) mmol/L Chloride (98-107) mmol/L Carbon Dioxide (22-32) mmol/L BUN (7-17) mg/dL Creatinine (0.52-1.04) mg/dL Estimated GFR (>60) mL/min BUN/Creatinine Ratio (6-22) Glucose (70-100) mg/dL Lactate 3.7 H (0.7-2.1) mmol/L Calcium (8.4-10.2) mg/dL Total Bilirubin (0.2-1.3) mg/dL AST (14-36) IU/L ALT (9-52) IU/L Alkaline Phosphatase (38-126) U/L Total Protein (6.3-8.2) g/dL Albumin (3.5-5.0) g/dL Globulin (1.7-4.1) g/dL Albumin/Globulin Ratio (1.0-2.8) Lipase (23-300) U/L Procalcitonin (<0.5) ng/mL Urine RBC 0-1/hpf (0-5/HPF) Urine WBC 5-10/hpf H (0-5/HPF) Ur Squamous Epith Cells 5-10 /hpf H Amorphous Sediment 1+ Urine Bacteria Few (2-10) H (None) Granular Casts 5-10/lpf (None) Ur Culture Indicated? Specimen cultured Micro UA Comment Not Reportable Ethyl Alcohol mg/dL Point of care testing: Urine Dip Bedside Urine Glucose Negative Bedside Urine Bilirubin - Negative Bedside Urine Ketone ++ 40 Urine Specific [place] 1.030 Bedside Urine Occult Blood +/- Bedside Urine pH 6.0 Bedside Urine Protein + 30 Bedside Urine Urobilinogen - Negative Bedside Urine Nitrite - Negative Bedside Urine Leukocytes - Negative Esterase MDM Narrative Medical decision making narrative: CT of the abdomen shows a fatty infiltrate to the liver however is negative for any acute findings. CBC shows elevated H& H otherwise is unremarkable. Chem panel shows elevated lactate with negative procalcitonin. AST is mildly elevated at 48. urinalysis indicates urinary tract infection.. She was given fluids in the emergency room which help normalize her heart rate. after fluids repeat lactate was obtained and was decreased to 3.7. Due to no elevated white count and negative procalcitonin along with negative CT doubtful that this is septic. laboratory results indicate dehydration which is most likely due to alcohol use. She is given Rocephin to treat urinary tract infection in the emergency room. offered admission to patient due to elevated heart rate fever and elevated lactate she states she would rather go home. She is also prescribed Keflex orally. Follow up with primary care for the next 2 days for re-evaluation. Differential for left lower quadrant abdominal pain is due to viral illness. For any worsening symptoms return to the emergency room. <Christian Conteh DO - Last Filed: 08/26/18 07:16> Lab Data Lab Results 08/25/18 08/25/18 08/25/18 Range/Units 14:05 14:05 14:05 WBC 10.1 (4.5-11.0) X10^3/uL RBC 5.48 H (4.0-5.2) X10^6/uL Hgb 16.5 H (12.0-16.0) g/dL Hct 48.7 H (36-46) % MCV 88.8 (80-100) fL MCH 30.0 (26-34) PG MCHC 33.8 (30-36) % RDW 13.5 (11.6-14.8) % Plt Count 336 (150-400) X10^3/uL Neut % (Auto) 75.5 H (50-75) % Lymph % (Auto) 19.4 L (25-40) % Banner % (Auto) 4.2 (3-14) % Eos % (Auto) 0.1 L (2-4) % Baso % (Auto) 0.8 (0-2) % Neut # (Auto) 7600 H (7721-8077) /uL PT 10.0 L (10.1-12.7) SECONDS INR 0.9 (0.9-1.3) APTT 26 L (26.4-36.2) SECONDS Sodium (137-145) mmol/L Potassium (3.4-5.1) mmol/L Chloride (98-107) mmol/L Carbon Dioxide (22-32) mmol/L BUN (7-17) mg/dL Creatinine (0.52-1.04) mg/dL Estimated GFR (>60) mL/min BUN/Creatinine Ratio (6-22) Glucose (70-100) mg/dL Lactate (0.7-2.1) mmol/L Calcium (8.4-10.2) mg/dL Total Bilirubin (0.2-1.3) mg/dL AST (14-36) IU/L ALT (9-52) IU/L Alkaline Phosphatase (38-126) U/L Total Protein (6.3-8.2) g/dL Albumin (3.5-5.0) g/dL Globulin (1.7-4.1) g/dL Albumin/Globulin Ratio (1.0-2.8) Lipase (23-300) U/L Procalcitonin < 0.05 (<0.5) ng/mL Urine RBC (0-5/HPF) Urine WBC (0-5/HPF) Ur Squamous Epith Cells Amorphous Sediment Urine Bacteria (None) Granular Casts (None) Ur Culture Indicated? Micro UA Comment Ethyl Alcohol mg/dL 08/25/18 08/25/18 08/25/18 Range/Units 14:05 14:05 14:05 WBC (4.5-11.0) X10^3/uL RBC (4.0-5.2) X10^6/uL Hgb (12.0-16.0) g/dL Hct (36-46) % MCV (80-100) fL MCH (26-34) PG MCHC (30-36) % RDW (11.6-14.8) % Plt Count (150-400) X10^3/uL Neut % (Auto) (50-75) % Lymph % (Auto) (25-40) % Banner % (Auto) (3-14) % Eos % (Auto) (2-4) % Baso % (Auto) (0-2) % Neut # (Auto) (3087-4167) /uL PT (10.1-12.7) SECONDS INR (0.9-1.3) APTT (26.4-36.2) SECONDS Sodium 144 (137-145) mmol/L Potassium 4.1 (3.4-5.1) mmol/L Chloride 101 (98-107) mmol/L Carbon Dioxide 18 L (22-32) mmol/L BUN 16 (7-17) mg/dL Creatinine 0.70 (0.52-1.04) mg/dL Estimated GFR > 60.0 (>60) mL/min BUN/Creatinine Ratio 22.9 H (6-22) Glucose 129 H (70-100) mg/dL Lactate 4.6 H (0.7-2.1) mmol/L Calcium 9.1 (8.4-10.2) mg/dL Total Bilirubin 0.8 (0.2-1.3) mg/dL AST 48 H (14-36) IU/L ALT 30 (9-52) IU/L Alkaline Phosphatase 81 (38-126) U/L Total Protein 8.0 (6.3-8.2) g/dL Albumin 5.4 H (3.5-5.0) g/dL Globulin 2.6 (1.7-4.1) g/dL Albumin/Globulin Ratio 2.1 (1.0-2.8) Lipase 84 (23-300) U/L Procalcitonin (<0.5) ng/mL Urine RBC (0-5/HPF) Urine WBC (0-5/HPF) Ur Squamous Epith Cells Amorphous Sediment Urine Bacteria (None) Granular Casts (None) Ur Culture Indicated? Micro UA Comment Ethyl Alcohol 268 mg/dL 08/25/18 08/25/18 Range/Units 16:50 Unknown WBC (4.5-11.0) X10^3/uL RBC (4.0-5.2) X10^6/uL Hgb (12.0-16.0) g/dL Hct (36-46) % MCV (80-100) fL MCH (26-34) PG MCHC (30-36) % RDW (11.6-14.8) % Plt Count (150-400) X10^3/uL Neut % (Auto) (50-75) % Lymph % (Auto) (25-40) % Banner % (Auto) (3-14) % Eos % (Auto) (2-4) % Baso % (Auto) (0-2) % Neut # (Auto) (5579-7415) /uL PT (10.1-12.7) SECONDS INR (0.9-1.3) APTT (26.4-36.2) SECONDS Sodium (137-145) mmol/L Potassium (3.4-5.1) mmol/L Chloride (98-107) mmol/L Carbon Dioxide (22-32) mmol/L BUN (7-17) mg/dL Creatinine (0.52-1.04) mg/dL Estimated GFR (>60) mL/min BUN/Creatinine Ratio (6-22) Glucose (70-100) mg/dL Lactate 3.7 H (0.7-2.1) mmol/L Calcium (8.4-10.2) mg/dL Total Bilirubin (0.2-1.3) mg/dL AST (14-36) IU/L ALT (9-52) IU/L Alkaline Phosphatase (38-126) U/L Total Protein (6.3-8.2) g/dL Albumin (3.5-5.0) g/dL Globulin (1.7-4.1) g/dL Albumin/Globulin Ratio (1.0-2.8) Lipase (23-300) U/L Procalcitonin (<0.5) ng/mL Urine RBC 0-1/hpf (0-5/HPF) Urine WBC 5-10/hpf H (0-5/HPF) Ur Squamous Epith Cells 5-10 /hpf H Amorphous Sediment 1+ Urine Bacteria Few (2-10) H (None) Granular Casts 5-10/lpf (None) Ur Culture Indicated? Specimen cultured Micro UA Comment Not Reportable Ethyl Alcohol mg/dL Point of care testing: Urine Dip Bedside Urine Glucose Negative Bedside Urine Bilirubin - Negative Bedside Urine Ketone ++ 40 Urine Specific [place] 1.030 Bedside Urine Occult Blood +/- Bedside Urine pH 6.0 Bedside Urine Protein + 30 Bedside Urine Urobilinogen - Negative Bedside Urine Nitrite - Negative Bedside Urine Leukocytes - Negative Esterase Discharge Plan Departure Patient Disposition: Home Clinical Impression: Urinary tract infection Discharge Date/Time: 08/25/18 18:01 Interventions: ED Discharge Assessment Last Done: 08/25/18 17:59 Instructions: DI for Abdominal Pain-Adult Activity Restrictions/Additional Instructions: Laboratory results indicate dehydration. year given fluids here in the emergency room. Recommend drinking plenty of fluids not containing alcohol and reducing alcohol intake. urinalysis indicates urinary tract infection. You have been placed on antibiotics use as directed. follow up with her primary care provider in the next couple of days for re-evaluation. If any worsening symptoms return to the emergency room. Use ibuprofen as needed for any discomfort or fever. Prescriptions: New cephalexin 500 mg capsule 500 mg PO Q12H Qty: 14 RF: 0 No Action gabapentin [Neurontin] 600 mg tablet See Label Instructions PO .COMPLEX Qty: 150 RF: 3 diphenhydramine HCl [Banophen] 50 mg capsule 1 cap PO DAILY RF: 0 Referrals: Daphne Calvillo PA-C [[employer]] - <Christian Conteh DO - Last Filed: 08/26/18 07:16> Cosign ED Attending Cosignature Attestation: I was available for consultation during this patient's emergency department encounter
[2018-08-25 17:59] VITALS: BP 150/87; PULSE 113; O2SAT 99
[2018-08-25 18:01] VITALS: RESP 24
[2018-08-25 18:13] LABS: Reflexed Lactate in 2 Hours Y
[2018-08-25 20:52] LABS: Reflexed Lactate in 2 Hours Y
== END 2018-08-25 18:01 | disposition home or self-care (01) ==
PROVIDERS: Emergency Medicine; Emergency Provider Nurse Practitioner Family
DX: N39.0 Urinary tract infection, site not specified (principal)
CPT/HCPCS: 36415; 36591; 74177; 80053; 80320; 81003; 81015; 83605; 83690; 84145; 85025; 85610; 85730; 87040; 87086; 96361; 96374; 96375; 99284; 99285; J1885; J2405; Q9967

== ENCOUNTER 2018-11-17 15:54 | Emergency (ER) | payer OTHER, MEDICAID, SELFPAY ==
[2018-11-17 15:56] VITALS: BP 168/101; PULSE 98; RESP 14; TEMP 36.6; O2SAT 97; BMI 18.1
--- NOTE | 2018-11-17 16:02 | DI.RAD.S_ITS ---
PROCEDURE: XR RIBS LT MIN 3V W CXR1V INDICATIONS: fall, now pain. TECHNIQUE: 2 views of the left ribs were acquired, along with a single view chest. COMPARISON: None. FINDINGS: Surgical changes and devices: None. Bones and chest wall: No fractures or dislocations. No suspicious bony lesions. Overlying soft tissues appear unremarkable. Lungs and pleura: No pleural effusions or pneumothorax. Lungs appear clear. Mediastinum: Mediastinal contours appear normal. Heart size is normal. IMPRESSION: No acute cardiopulmonary pathology. No gross displaced left rib fracture is noted. Dictated by: Constantine Ashley M.D. on 11/17/2018 at 16:34 Approved by: Constantine Ashley M.D. on 11/17/2018 at 16:35
--- NOTE | 2018-11-17 17:20 | ED.FALL ---
HPI - Fall <Genevieve Villarreal PA-C - Last Filed: 11/17/18 22:24> General Chief Complaint: Fall Stated Complaint: LEFT SIDE RIB PAIN Time Seen by Provider: 11/17/18 17:39 Source: patient Mode of arrival: ambulatory Limitations: no limitations History of Present Illness HPI Narrative: This 42-year-old female the comes to ED due to 1. Left-sided rib pain and 2. Left elbow pain. She states on [place], she slipped on the last wooden step on her stare well in her slippery socks, fell backwards and hit her left elbow and hip. She states that her elbow has been sore and can have pain radiating into the forearm, but no problems using her elbow or hand. She states that the rib did not start to hurt until a few days later, when she went to get up and she felt a pop in the rib. She took ibuprofen and has been taking that regularly. It helped somewhat, but she ran out yesterday and has felt intermittent popping off and on with movements, i.e. with picking up her grandson who is 1-year-old, or any kind of straining. She denies any wheeze or dyspnea. She denies any other injury 3. Possible UTI-she states that she started to have urinary burning again last week. She has not had vomiting, fever, or new flank pain with this (states she has had kidney infections previously), so she started leftover Keflex b.i.d. 5 days ago. States symptoms better but not quite resolved. She denies discharge, STD concerns or other new c/o aside from recurrent shingles around the same time (resolved now). Related Data Home Medications Medication Instructions Recorded Confirmed cranberry 1 dose PO DAILY 11/17/18 11/17/18 gabapentin 600 mg PO DAILY 11/17/18 11/17/18 gabapentin [Neurontin] 1,200 mg PO BID 11/17/18 11/17/18 phenazopyridine 1 tab PO PRN PRN 11/17/18 11/17/18 Previous Rx's Medication Instructions Recorded lidocaine [Lidoderm] 2 patch TOP DAILY #30 each 11/17/18 meloxicam 15 mg PO DAILY #14 tab 11/17/18 oxycodone-acetaminophen [Endocet] 1 tab PO .hs PRN #5 tab 11/17/18 Allergies Allergy/AdvReac Type Severity Reaction Status Date / Time Sulfa (Sulfonamide Allergy Verified 08/25/18 13:53 Antibiotics) Review of Systems <Genevieve Villarreal PA-C - Last Filed: 11/17/18 22:24> Review of Systems All systems reviewed & are unremarkable except as noted in HPI and below Exam <Genevieve Villarreal PA-C - Last Filed: 11/17/18 22:24> Narrative Exam Narrative: GENERAL APPEARANCE: Patient sitting comfortably, in no distress. LUNGS: Clear to auscultation bilaterally. Splinting. HEART: Rate and rhythm regular without murmur, normal S1 and S2, no S3 or S4. CHEST: Tender to palpation over the left 11th rib lateral clavicular to lateral scapular line. No point tenderness elsewhere ABDOMEN: Soft, NT, ND, +BS x 4 quadrants, no suprapubic tenderness MUSCULOSKELETAL: Left elbow no effusion, full range of motion. Tender in ulnar groove. Normal range of motion in the wrist and hand DERMATOLOGIC: No exanthem Initial Vital Signs Initial Vital Signs: Vital Signs Temperature 97.8 F 11/17/18 15:56 Pulse Rate 98 H 11/17/18 15:56 Respiratory Rate 14 11/17/18 15:56 Blood Pressure 168/101 H 11/17/18 15:56 Pulse Oximetry 97 11/17/18 15:56 <Fabi Nieto DO - Last Filed: 11/21/18 08:13> Initial Vital Signs Initial Vital Signs: Vital Signs Temperature 97.8 F 11/17/18 15:56 Pulse Rate 98 H 11/17/18 15:56 Respiratory Rate 14 11/17/18 15:56 Blood Pressure 168/101 H 11/17/18 15:56 Pulse Oximetry 97 11/17/18 15:56 Course <KAPIL Ribeiro Last Filed: 11/17/18 22:24> Orders Ordered: Discontinued Medications Ketorolac Tromethamine (Toradol) 60 mg IM NOW ONE Stop: 11/17/18 17:52 Last Admin: 11/17/18 18:04 Dose: 60 mg Vital Signs - 8 hr 11/17/18 15:56 11/17/18 17:21 11/17/18 19:10 Temperature 97.8 F Pulse Rate 98 H 80 90 Respiratory Rate 14 16 14 Blood Pressure 168/101 H Blood Pressure [Right Arm] 131/83 140/90 Pulse Oximetry 97 100 100 <Fabi Nieto DO - Last Filed: 11/21/18 08:13> Orders Ordered: Discontinued Medications Ketorolac Tromethamine (Toradol) 60 mg IM NOW ONE Stop: 11/17/18 17:52 Last Admin: 11/17/18 18:04 Dose: 60 mg Vital Signs - 8 hr 11/17/18 15:56 11/17/18 17:21 11/17/18 19:10 Temperature 97.8 F Pulse Rate 98 H 80 90 Respiratory Rate 14 16 14 Blood Pressure 168/101 H Blood Pressure [Right Arm] 131/83 140/90 Pulse Oximetry 97 100 100 MDM - Fall <Genevieve Villarreal PA-C - Last Filed: 11/17/18 22:24> Lab Data Attestation: I reviewed the patient's lab results. Urine Dip Bedside Urine Glucose Negative Bedside Urine Bilirubin - Negative Bedside Urine Ketone - Negative Urine Specific [place] 1.015 Bedside Urine Occult Blood - Negative Bedside Urine pH 6.5 Bedside Urine Protein - Negative Bedside Urine Urobilinogen - Negative Bedside Urine Nitrite - Negative Bedside Urine Leukocytes - Negative Esterase Imaging Data Chest x-ray: Radiologist's impression: [place] [address] XRay Report Signed Patient: Lorraine Freedman MR#: [id number] : 1975 Acct:[id number] Age/Sex: 42 / F Date of Service: 11/17/18 Loc: ED Accession Number: [id number] Procedure: XR ribs LT min 3V w CXR1V Ordering Provider: Fabi Nieto D.O. PROCEDURE: XR RIBS LT MIN 3V W CXR1V INDICATIONS: fall, now pain. TECHNIQUE: 2 views of the left ribs were acquired, along with a single view chest. COMPARISON: None. FINDINGS: Surgical changes and devices: None. Bones and chest wall: No fractures or dislocations. No suspicious bony lesions. Overlying soft tissues appear unremarkable. Lungs and pleura: No pleural effusions or pneumothorax. Lungs appear clear. Mediastinum: Mediastinal contours appear normal. Heart size is normal. IMPRESSION: No acute cardiopulmonary pathology. No gross displaced left rib fracture is noted. Dictated by: Constantine Ashley M.D. on 11/17/2018 at 16:34 Approved by: Constantine Ashley M.D. on 11/17/2018 at 16:35 <Fabi Nieto DO - Last Filed: 11/21/18 08:13> Lab Data Urine Dip Bedside Urine Glucose Negative Bedside Urine Bilirubin - Negative Bedside Urine Ketone - Negative Urine Specific [place] 1.015 Bedside Urine Occult Blood - Negative Bedside Urine pH 6.5 Bedside Urine Protein - Negative Bedside Urine Urobilinogen - Negative Bedside Urine Nitrite - Negative Bedside Urine Leukocytes - Negative Esterase Discharge Plan Departure Patient Disposition: Home Clinical Impression: Acute costochondritis, Elbow contusion Discharge Date/Time: 11/17/18 19:13 Interventions: ED Discharge Assessment Last Done: 11/17/18 19:12 Instructions: DI for Costochondritis, DI for Rib Contusion Activity Restrictions/Additional Instructions: I think that your 11th rib it is pulled off of the cartilage a little bit and the muscles in between likely are strained as well. You are right in that this may be an exacerbation of an old injury. Please try the prescription anti-inflammatory pain reliever meloxicam, and apply 1-3 Lidoderm patches on the area daily. I have given you a few Percocet to use at bedtime for the next few nights if you need them to help with sleep. I think that when you bumped your elbow you irritated the nerve on the thumb side, however I suspect this will resolve on its own given a little bit of time. Be careful not to over stressed the elbow or bump it. You do not appear to have a urinary infection today, however as we talked about you should follow-up if you have any acutely worsening symptoms, either here, urgent care, or with a new PCP. When you see your new PCP, please discuss a prescription for antiviral medicine for your shingles outbreaks to have on hand since you have had recurrent once. If you have not heard from [facility], you may wish to call the [facility] clinic here in [facility] to see if you can get an earlier appointment. Prescriptions: New meloxicam 15 mg tablet 15 mg PO DAILY Qty: 14 RF: 0 oxycodone-acetaminophen [Endocet] 5-325 mg tablet 1 tab PO .hs PRN (Reason: acute rib pain) Qty: 5 RF: 0 lidocaine [Lidoderm] 5 % adhesive patch,medicated 2 patch TOP DAILY Qty: 30 RF: 0 Discontinued ibuprofen 200 mg Tablet 1 dose PO PRN PRN (Reason: pain) RF: 0 No Action gabapentin 600 mg Tablet 600 mg PO DAILY RF: 0 cranberry 1 dose PO DAILY RF: 0 phenazopyridine 1 tab PO PRN PRN (Reason: urinary pain) RF: 0 gabapentin [Neurontin] 600 mg tablet 1,200 mg PO BID RF: 0 <Fabi Nieto, - Last Filed: 11/21/18 08:13> Cosign ED Attending Cosyangature Attestation: I was immediately available in the department for consultation. Documentation has been reviewed. I agree with assessment and plan.
[2018-11-17 17:21] VITALS: BP 131/83; PULSE 80; RESP 16; O2SAT 100
--- NOTE | 2018-11-17 17:23 | ED_ITS ---
Addendum entered and electronically signed by Genevieve Villarreal P.A-C 11/17/18 22:24: To Dr. Nieto for cosign Original Note: HPI - Fall <Genevieve Villarreal PA-C - Last Filed: 11/17/18 22:24> General Chief Complaint: Fall Stated Complaint: LEFT SIDE RIB PAIN Time Seen by Provider: 11/17/18 17:39 Source: patient Mode of arrival: ambulatory Limitations: no limitations History of Present Illness HPI Narrative: This 42-year-old female the comes to ED due to 1. Left-sided rib pain and 2. Left elbow pain. She states on [place], she slipped on the last wooden step on her stare well in her slippery socks, fell backwards and hit her left elbow and hip. She states that her elbow has been sore and can have pain radiating into the forearm, but no problems using her elbow or hand. She states that the rib did not start to hurt until a few days later, when she went to get up and she felt a pop in the rib. She took ibuprofen and has been taking that regularly. It helped somewhat, but she ran out yesterday and has felt intermittent popping off and on with movements, i.e. with picking up her grandson who is 1-year-old, or any kind of straining. She denies any wheeze or dyspnea. She denies any other injury 3. Possible UTI-she states that she started to have urinary burning again last week. She has not had vomiting, fever, or new flank pain with this (states she has had kidney infections previously), so she started leftover Keflex b.i.d. 5 days ago. States symptoms better but not quite resolved. She denies discharge, STD concerns or other new c/o aside from recurrent shingles around the same time (resolved now). Related Data Home Medications Medication Instructions Recorded Confirmed cranberry 1 dose PO DAILY 11/17/18 11/17/18 gabapentin 600 mg PO DAILY 11/17/18 11/17/18 gabapentin [Neurontin] 1,200 mg PO BID 11/17/18 11/17/18 phenazopyridine 1 tab PO PRN PRN 11/17/18 11/17/18 Previous Rx's Medication Instructions Recorded lidocaine [Lidoderm] 2 patch TOP DAILY #30 each 11/17/18 meloxicam 15 mg PO DAILY #14 tab 11/17/18 oxycodone-acetaminophen [Endocet] 1 tab PO .hs PRN #5 tab 11/17/18 Allergies Allergy/AdvReac Type Severity Reaction Status Date / Time Sulfa (Sulfonamide Allergy Verified 08/25/18 13:53 Antibiotics) Review of Systems <Genevieve Villarreal PA-C - Last Filed: 11/17/18 22:24> Review of Systems All systems reviewed & are unremarkable except as noted in HPI and below Exam <Genevieve Villarreal PA-C - Last Filed: 11/17/18 22:24> Narrative Exam Narrative: GENERAL APPEARANCE: Patient sitting comfortably, in no distress. LUNGS: Clear to auscultation bilaterally. Splinting. HEART: Rate and rhythm regular without murmur, normal S1 and S2, no S3 or S4. CHEST: Tender to palpation over the left 11th rib lateral clavicular to lateral scapular line. No point tenderness elsewhere ABDOMEN: Soft, NT, ND, +BS x 4 quadrants, no suprapubic tenderness MUSCULOSKELETAL: Left elbow no effusion, full range of motion. Tender in ulnar groove. Normal range of motion in the wrist and hand DERMATOLOGIC: No exanthem Initial Vital Signs Initial Vital Signs: Vital Signs Temperature 97.8 F 11/17/18 15:56 Pulse Rate 98 H 11/17/18 15:56 Respiratory Rate 14 11/17/18 15:56 Blood Pressure 168/101 H 11/17/18 15:56 Pulse Oximetry 97 11/17/18 15:56 <Fabi Nieto DO - Last Filed: 11/21/18 08:13> Initial Vital Signs Initial Vital Signs: Vital Signs Temperature 97.8 F 11/17/18 15:56 Pulse Rate 98 H 11/17/18 15:56 Respiratory Rate 14 11/17/18 15:56 Blood Pressure 168/101 H 11/17/18 15:56 Pulse Oximetry 97 11/17/18 15:56 Course <KAPIL Ribeiro Last Filed: 11/17/18 22:24> Orders Ordered: Discontinued Medications Ketorolac Tromethamine (Toradol) 60 mg IM NOW ONE Stop: 11/17/18 17:52 Last Admin: 11/17/18 18:04 Dose: 60 mg Vital Signs - 8 hr 11/17/18 15:56 11/17/18 17:21 11/17/18 19:10 Temperature 97.8 F Pulse Rate 98 H 80 90 Respiratory Rate 14 16 14 Blood Pressure 168/101 H Blood Pressure [Right Arm] 131/83 140/90 Pulse Oximetry 97 100 100 <Fabi Nieto DO - Last Filed: 11/21/18 08:13> Orders Ordered: Discontinued Medications Ketorolac Tromethamine (Toradol) 60 mg IM NOW ONE Stop: 11/17/18 17:52 Last Admin: 11/17/18 18:04 Dose: 60 mg Vital Signs - 8 hr 11/17/18 15:56 11/17/18 17:21 11/17/18 19:10 Temperature 97.8 F Pulse Rate 98 H 80 90 Respiratory Rate 14 16 14 Blood Pressure 168/101 H Blood Pressure [Right Arm] 131/83 140/90 Pulse Oximetry 97 100 100 MDM - Fall <Genevieve Villarreal PA-C - Last Filed: 11/17/18 22:24> Lab Data Attestation: I reviewed the patient's lab results. Urine Dip Bedside Urine Glucose Negative Bedside Urine Bilirubin - Negative Bedside Urine Ketone - Negative Urine Specific [place] 1.015 Bedside Urine Occult Blood - Negative Bedside Urine pH 6.5 Bedside Urine Protein - Negative Bedside Urine Urobilinogen - Negative Bedside Urine Nitrite - Negative Bedside Urine Leukocytes - Negative Esterase Imaging Data Chest x-ray: Radiologist's impression: [address] [address] XRay Report Signed Patient: Lorraine Freedman MR#: [id number] : 1975 Acct:[id number] Age/Sex: 42 / F Date of Service: 11/17/18 Loc: ED Accession Number: [id number] Procedure: XR ribs LT min 3V w CXR1V Ordering Provider: Fabi Nieto D.O. PROCEDURE: XR RIBS LT MIN 3V W CXR1V INDICATIONS: fall, now pain. TECHNIQUE: 2 views of the left ribs were acquired, along with a single view chest. COMPARISON: None. FINDINGS: Surgical changes and devices: None. Bones and chest wall: No fractures or dislocations. No suspicious bony lesions. Overlying soft tissues appear unremarkable. Lungs and pleura: No pleural effusions or pneumothorax. Lungs appear clear. Mediastinum: Mediastinal contours appear normal. Heart size is normal. IMPRESSION: No acute cardiopulmonary pathology. No gross displaced left rib fracture is noted. Dictated by: Constantine Ashley M.D. on 11/17/2018 at 16:34 Approved by: Constantine Ashley M.D. on 11/17/2018 at 16:35 <Fabi Nieto DO - Last Filed: 11/21/18 08:13> Lab Data Urine Dip Bedside Urine Glucose Negative Bedside Urine Bilirubin - Negative Bedside Urine Ketone - Negative Urine Specific [place] 1.015 Bedside Urine Occult Blood - Negative Bedside Urine pH 6.5 Bedside Urine Protein - Negative Bedside Urine Urobilinogen - Negative Bedside Urine Nitrite - Negative Bedside Urine Leukocytes - Negative Esterase Discharge Plan Departure Patient Disposition: Home Clinical Impression: Acute costochondritis, Elbow contusion Discharge Date/Time: 11/17/18 19:13 Interventions: ED Discharge Assessment Last Done: 11/17/18 19:12 Instructions: DI for Costochondritis, DI for Rib Contusion Activity Restrictions/Additional Instructions: I think that your 11th rib it is pulled off of the cartilage a little bit and the muscles in between likely are strained as well. You are right in that this may be an exacerbation of an old injury. Please try the prescription anti- inflammatory pain reliever meloxicam, and apply 1-3 Lidoderm patches on the area daily. I have given you a few Percocet to use at bedtime for the next few nights if you need them to help with sleep. I think that when you bumped your elbow you irritated the nerve on the thumb side, however I suspect this will resolve on its own given a little bit of time. Be careful not to over stressed the elbow or bump it. You do not appear to have a urinary infection today, however as we talked about you should follow-up if you have any acutely worsening symptoms, either here, urgent care, or with a new PCP. When you see your new PCP, please discuss a prescription for antiviral medicine for your shingles outbreaks to have on hand since you have had recurrent once. If you have not heard from [facility], you may wish to call the [facility] clinic here in town to see if you can get an earlier appointment. Prescriptions: New meloxicam 15 mg tablet 15 mg PO DAILY Qty: 14 RF: 0 oxycodone-acetaminophen [Endocet] 5-325 mg tablet 1 tab PO .hs PRN (Reason: acute rib pain) Qty: 5 RF: 0 lidocaine [Lidoderm] 5 % adhesive patch,medicated 2 patch TOP DAILY Qty: 30 RF: 0 Discontinued ibuprofen 200 mg Tablet 1 dose PO PRN PRN (Reason: pain) RF: 0 No Action gabapentin 600 mg Tablet 600 mg PO DAILY RF: 0 cranberry 1 dose PO DAILY RF: 0 phenazopyridine 1 tab PO PRN PRN (Reason: urinary pain) RF: 0 gabapentin [Neurontin] 600 mg tablet 1,200 mg PO BID RF: 0 <Fabi Nieto DO - Last Filed: 11/21/18 08:13> Cosign ED Attending Tiff[place]ature Attestation: I was immediately available in the department for consultation. Documentation has been reviewed. I agree with assessment and plan.
[2018-11-17] MEDS: KETOROLAC 60 MG/2 ML VIAL IM (18:04)
[2018-11-17 19:10] VITALS: BP 140/90; PULSE 90; RESP 14; O2SAT 100
== END 2018-11-17 19:13 | disposition home or self-care (01) ==
PROVIDERS: Emergency Provider Internal Medicine
DX: M94.0 Chondrocostal junction syndrome [Tietze] (principal)
CPT/HCPCS: 71101; 81003; 96372; 99283; J1885

== ENCOUNTER 2019-05-04 11:11 | Emergency (ER) | payer OTHER, MEDICAID, SELFPAY ==
[2019-05-04 11:13] VITALS: BP 130/105; PULSE 128; RESP 28; O2SAT 96
--- NOTE | 2019-05-04 11:22 | ED.BACK ---
HPI - Back Pain/Injury <Genevieve Villarreal PA-C - Last Filed: 05/04/19 19:59> General Chief Complaint: Toxicology Problem Stated Complaint: detox Time Seen by Provider: 05/04/19 11:15 Source: patient Mode of arrival: ambulatory Limitations: no limitations History of Present Illness HPI Narrative: This 43-year-old female comes to ED requesting help with getting into inpatient detox for alcohol abuse. She states she was seen at another local hospital yesterday but there were no beds available. She did drink last night (unknown how much), and states she has had at least a couple of shots today, not sure of what. She denies any street drug use. She states she does not think she has taken any of her regular medications today. She states what instigated this more severe drinking binge was in argument with her for which she got arrested after throwing and damaging his phone. She states that they had both been drinking at that point and she has not stopped drinking. She states that she does not feel like she needs inpatient rehab as she has friends in and has been in , but does want help with detox. She denies chest pain or dyspnea, but states she does not feel well in general. She has had some tingly pain in both forearms. She is not sure how long that has been present. She has not had vomiting. She states that she has had some headache. She denies any falls or injury. She states that most recently she has been on clonazepam for anxiety but again doesn't think she took regular meds today Related Data Home Medications Medication Instructions Recorded Confirmed cranberry 1 dose PO DAILY 11/17/18 03/10/19 acetaminophen 325 mg tablet 650 mg PO Q6H PRN 03/10/19 03/10/19 acyclovir 400 mg tablet 400 mg PO 5XD 03/10/19 03/10/19 ascorbic acid (vitamin C) 500 mg mg PO cap 03/10/19 03/10/19 capsule vitamin B complex tablet 1 tab PO DAILY 03/10/19 03/10/19 vitamin E 200 unit capsule 200 unit PO DAILY 03/10/19 03/10/19 clonazepam 1 mg PO BID PRN 05/04/19 05/04/19 gabapentin [Neurontin] 600 mg PO TID 05/04/19 05/04/19 naltrexone microspheres [Vivitrol] 380 mg IM Q4W 05/04/19 05/04/19 naproxen 500 mg PO BID 05/04/19 05/04/19 tramadol 50 mg PO Q6H PRN 05/04/19 05/04/19 Allergies Allergy/AdvReac Type Severity Reaction Status Date / Time Sulfa (Sulfonamide Allergy Verified 05/04/19 13:55 Antibiotics) Review of Systems <Genevieve Villarreal PA-C - Last Filed: 05/04/19 19:59> Review of Systems ROS Unobtainable: All systems reviewed & are unremarkable except as noted in HPI and below PFSH <Genevieve Villarreal PA-C - Last Filed: 05/04/19 19:59> Medical History Alcohol abuse (Chronic) Anxiety (Chronic) Chronic back pain (Chronic Unknown) DJD (degenerative joint disease), cervical (Chronic) Fibromyalgia (Chronic) PTSD (post-traumatic stress disorder) (Chronic) History of suicide attempt (Resolved) Surgical History Hx of hysterectomy (Resolved) Hx of tonsillectomy (Resolved) Family History Mother No problems noted. Other Family history non-contributory Social History Smoking Status: Current every day smoker Family History Mother No problems noted. Other Family history non-contributory Social History Smoking Status: Current every day smoker Exam <Genevieve Villarreal PA-C - Last Filed: 05/04/19 19:59> Narrative Exam Narrative: GENERAL APPEARANCE: Patient moderately anxious, in NAD HEENT: PERRL, EOMI, normal oropharynx NECK: Supple LUNGS: Clear to auscultation bilaterally. HEART: Rate and rhythm regular without murmur, normal S1 and S2, no S3 or S4. ABDOMEN: Soft, NT, ND, + BS x 4 quadrants NEUROLOGIC: Alert and oriented, normal speech and coordination, fidgety but no tremor noted MUSCULOSKELETAL: Full Csp AROM Initial Vital Signs Initial Vital Signs: Vital Signs Pulse Rate 128 H 05/04/19 11:13 Respiratory Rate 28 H 05/04/19 11:13 Blood Pressure 130/105 H 05/04/19 11:13 Pulse Oximetry 96 05/04/19 11:13 Const Orientation: confused <Olamide Morrissey DO - Last Filed: 05/06/19 19:25> Initial Vital Signs Initial Vital Signs: Vital Signs Pulse Rate 128 H 05/04/19 11:13 Respiratory Rate 28 H 05/04/19 11:13 Blood Pressure 130/105 H 05/04/19 11:13 Pulse Oximetry 96 05/04/19 11:13 Course <Genevieve Villarreal PA-C - Last Filed: 05/04/19 19:59> Additional Information: Patient appeared stable while here. Reported feeling improved in terms of anxiety. She decided that she wanted to be discharged. She denies any suicidal ideation. She is not driving and was ambulating normally at the time of discharge. Encouraged to consider outpatient treatment. I did speak with her PCP regarding visit and abnormal TSH, and also discussed this with patient and encouraged follow-up with PCP as well as Psychiatry. Orders Ordered: Discontinued Medications Magnesium Sulfate 2 gm/ Folic Acid 1 mg/ Thiamine HCl 100 mg / Multivitamins 10 ml/ Sodium Chloride 1,015.2 mls @ 125 mls/hr IV NOW ONE Stop: 05/04/19 19:26 Last Infusion: 05/04/19 12:46 Dose: 0 mls/hr Admin: 05/04/19 12:07 Dose: 125 mls/hr Sodium Chloride (Normal Saline 0.9%) 1,000 mls @ 1,000 mls/hr IV BOLUS ONE Stop: 05/04/19 12:18 Last Infusion: 05/04/19 12:27 Dose: 0 mls/hr Admin: 05/04/19 11:25 Dose: 1,000 mls/hr Lorazepam (Ativan) 2 mg IV NOW ONE Stop: 05/04/19 11:20 Last Admin: 05/04/19 11:25 Dose: 2 mg Lorazepam (Ativan) 2 mg IV NOW ONE Stop: 05/04/19 12:23 Last Admin: 05/04/19 12:27 Dose: 2 mg Ondansetron HCl (Zofran) 4 mg IV NOW ONE Stop: 05/04/19 11:20 Last Admin: 05/04/19 11:25 Dose: 4 mg Vital Signs - 8 hr 05/04/19 12:15 05/04/19 12:47 Pulse Rate 80 Respiratory Rate 13 16 Blood Pressure [Right Arm] 130/78 106/68 Pulse Oximetry 96 100 <Olamide Morrissey DO - Last Filed: 05/06/19 19:25> Orders Ordered: Discontinued Medications Magnesium Sulfate 2 gm/ Folic Acid 1 mg/ Thiamine HCl 100 mg / Multivitamins 10 ml/ Sodium Chloride 1,015.2 mls @ 125 mls/hr IV NOW ONE Stop: 05/04/19 19:26 Last Infusion: 05/04/19 12:46 Dose: 0 mls/hr Admin: 05/04/19 12:07 Dose: 125 mls/hr Sodium Chloride (Normal Saline 0.9%) 1,000 mls @ 1,000 mls/hr IV BOLUS ONE Stop: 05/04/19 12:18 Last Infusion: 05/04/19 12:27 Dose: 0 mls/hr Admin: 05/04/19 11:25 Dose: 1,000 mls/hr Lorazepam (Ativan) 2 mg IV NOW ONE Stop: 05/04/19 11:20 Last Admin: 05/04/19 11:25 Dose: 2 mg Lorazepam (Ativan) 2 mg IV NOW ONE Stop: 05/04/19 12:23 Last Admin: 05/04/19 12:27 Dose: 2 mg Ondansetron HCl (Zofran) 4 mg IV NOW ONE Stop: 05/04/19 11:20 Last Admin: 05/04/19 11:25 Dose: 4 mg Vital Signs - 8 hr 05/04/19 12:15 05/04/19 12:47 Pulse Rate 80 Respiratory Rate 13 16 Blood Pressure [Right Arm] 130/78 106/68 Pulse Oximetry 96 100 MDM - Back Pain/Injury <Genevieve Villarreal PA-C - Last Filed: 05/04/19 19:59> Medical Records Attestation: I reviewed the patient's medical records. Lab Data Result diagrams: 05/04/19 11:20 05/04/19 11:20 Lab Results 05/04/19 05/04/19 05/04/19 Range/Units 11:20 11:20 11:30 WBC 7.0 (4.5-11.0) X10^3/uL RBC 4.85 (4.0-5.2) X10^6/uL Hgb 14.7 (12.0-16.0) g/dL Hct 43.5 (36-46) % MCV 89.7 (80-100) fL MCH 30.3 (26-34) PG MCHC 33.8 (30-36) % RDW 14.2 (11.6-14.8) % Plt Count 271 (150-400) X10^3/uL Neut % (Auto) 54.0 (50-75) % Lymph % (Auto) 36.8 (25-40) % [place] % (Auto) 7.0 (3-14) % Eos % (Auto) 1.5 L (2-4) % Baso % (Auto) 0.7 (0-2) % Neut # (Auto) 3800 (3529-2894) /uL Lymph # (Auto) 2600 (3552-7979) /uL [place] # (Auto) 500 (0-900) /uL Eos # (Auto) 100 (0-450) /uL Baso # (Auto) 0 (0-100) /uL Sodium 147 H (137-145) mmol/L Potassium 4.1 (3.4-5.1) mmol/L Chloride 110 H (98-107) mmol/L Carbon Dioxide 24 (22-32) mmol/L BUN 9 (7-17) mg/dL Creatinine 0.60 (0.52-1.04) mg/dL Estimated GFR > 60.0 (>60) mL/min BUN/Creatinine Ratio 15.0 (6-22) Glucose 87 (70-100) mg/dL Calcium 9.9 (8.4-10.2) mg/dL Magnesium 2.0 (1.6-2.3) mg/dL Total Bilirubin 0.6 (0.2-1.3) mg/dL AST 41 H (14-36) IU/L ALT 27 (9-52) IU/L Alkaline Phosphatase 90 (38-126) U/L Total Protein 7.9 (6.3-8.2) g/dL Albumin 5.0 (3.5-5.0) g/dL Globulin 2.9 (1.7-4.1) g/dL Albumin/Globulin Ratio 1.7 (1.0-2.8) TSH 0.23 L (0.47-4.68) uIU/mL Urine Opiates Screen (Negative) Ur Oxycodone Screen (Negative) Urine Methadone Screen (Negative) Acetaminophen < 10 L (10-30) ug/mL Ur Barbiturates Screen (Negative) U Tricyclic Antidepress (Negative) Ur Phencyclidine Scrn (Negative) Ur Amphetamines Screen (Negative) U Methamphetamines Scrn (Negative) Ur MDMA Scrn (Ecstasy) (Negative) U Benzodiazepines Scrn (Negative) Urine Cocaine Screen (Negative) U Marijuana (THC) Screen (Negative) Ethyl Alcohol mg/dL 05/04/19 05/04/19 Range/Units 11:30 11:35 WBC (4.5-11.0) X10^3/uL RBC (4.0-5.2) X10^6/uL Hgb (12.0-16.0) g/dL Hct (36-46) % MCV (80-100) fL MCH (26-34) PG MCHC (30-36) % RDW (11.6-14.8) % Plt Count (150-400) X10^3/uL Neut % (Auto) (50-75) % Lymph % (Auto) (25-40) % [place] % (Auto) (3-14) % Eos % (Auto) (2-4) % Baso % (Auto) (0-2) % Neut # (Auto) (5164-8994) /uL Lymph # (Auto) (5987-3626) /uL [place] # (Auto) (0-900) /uL Eos # (Auto) (0-450) /uL Baso # (Auto) (0-100) /uL Sodium (137-145) mmol/L Potassium (3.4-5.1) mmol/L Chloride (98-107) mmol/L Carbon Dioxide (22-32) mmol/L BUN (7-17) mg/dL Creatinine (0.52-1.04) mg/dL Estimated GFR (>60) mL/min BUN/Creatinine Ratio (6-22) Glucose (70-100) mg/dL Calcium (8.4-10.2) mg/dL Magnesium (1.6-2.3) mg/dL Total Bilirubin (0.2-1.3) mg/dL AST (14-36) IU/L ALT (9-52) IU/L Alkaline Phosphatase (38-126) U/L Total Protein (6.3-8.2) g/dL Albumin (3.5-5.0) g/dL Globulin (1.7-4.1) g/dL Albumin/Globulin Ratio (1.0-2.8) TSH (0.47-4.68) uIU/mL Urine Opiates Screen Negative (Negative) Ur Oxycodone Screen Negative (Negative) Urine Methadone Screen Negative (Negative) Acetaminophen (10-30) ug/mL Ur Barbiturates Screen Negative (Negative) U Tricyclic Antidepress Negative (Negative) Ur Phencyclidine Scrn Negative (Negative) Ur Amphetamines Screen Negative (Negative) U Methamphetamines Scrn Negative (Negative) Ur MDMA Scrn (Ecstasy) Negative (Negative) U Benzodiazepines Scrn Positive H (Negative) Urine Cocaine Screen Negative (Negative) U Marijuana (THC) Screen Negative (Negative) Ethyl Alcohol 293 mg/dL Urine Dip Bedside Urine Glucose Negative Bedside Urine Bilirubin - Negative Bedside Urine Ketone - Negative Urine Specific [place] 1.010 Bedside Urine Occult Blood - Negative Bedside Urine pH 7.0 Bedside Urine Protein - Negative Bedside Urine Urobilinogen - Negative Bedside Urine Nitrite - Negative Bedside Urine Leukocytes - Negative Esterase <Olamide Morrissey, DO - Last Filed: 05/06/19 19:25> Lab Data Lab Results 05/04/19 05/04/19 05/04/19 Range/Units 11:20 11:20 11:30 WBC 7.0 (4.5-11.0) X10^3/uL RBC 4.85 (4.0-5.2) X10^6/uL Hgb 14.7 (12.0-16.0) g/dL Hct 43.5 (36-46) % MCV 89.7 (80-100) fL MCH 30.3 (26-34) PG MCHC 33.8 (30-36) % RDW 14.2 (11.6-14.8) % Plt Count 271 (150-400) X10^3/uL Neut % (Auto) 54.0 (50-75) % Lymph % (Auto) 36.8 (25-40) % [place] % (Auto) 7.0 (3-14) % Eos % (Auto) 1.5 L (2-4) % Baso % (Auto) 0.7 (0-2) % Neut # (Auto) 3800 (7536-8743) /uL Lymph # (Auto) 2600 (4709-1542) /uL [place] # (Auto) 500 (0-900) /uL Eos # (Auto) 100 (0-450) /uL Baso # (Auto) 0 (0-100) /uL Sodium 147 H (137-145) mmol/L Potassium 4.1 (3.4-5.1) mmol/L Chloride 110 H (98-107) mmol/L Carbon Dioxide 24 (22-32) mmol/L BUN 9 (7-17) mg/dL Creatinine 0.60 (0.52-1.04) mg/dL Estimated GFR > 60.0 (>60) mL/min BUN/Creatinine Ratio 15.0 (6-22) Glucose 87 (70-100) mg/dL Calcium 9.9 (8.4-10.2) mg/dL Magnesium 2.0 (1.6-2.3) mg/dL Total Bilirubin 0.6 (0.2-1.3) mg/dL AST 41 H (14-36) IU/L ALT 27 (9-52) IU/L Alkaline Phosphatase 90 (38-126) U/L Total Protein 7.9 (6.3-8.2) g/dL Albumin 5.0 (3.5-5.0) g/dL Globulin 2.9 (1.7-4.1) g/dL Albumin/Globulin Ratio 1.7 (1.0-2.8) TSH 0.23 L (0.47-4.68) uIU/mL Urine Opiates Screen (Negative) Ur Oxycodone Screen (Negative) Urine Methadone Screen (Negative) Acetaminophen < 10 L (10-30) ug/mL Ur Barbiturates Screen (Negative) U Tricyclic Antidepress (Negative) Ur Phencyclidine Scrn (Negative) Ur Amphetamines Screen (Negative) U Methamphetamines Scrn (Negative) Ur MDMA Scrn (Ecstasy) (Negative) U Benzodiazepines Scrn (Negative) Urine Cocaine Screen (Negative) U Marijuana (THC) Screen (Negative) Ethyl Alcohol mg/dL 05/04/19 05/04/19 Range/Units 11:30 11:35 WBC (4.5-11.0) X10^3/uL RBC (4.0-5.2) X10^6/uL Hgb (12.0-16.0) g/dL Hct (36-46) % MCV (80-100) fL MCH (26-34) PG MCHC (30-36) % RDW (11.6-14.8) % Plt Count (150-400) X10^3/uL Neut % (Auto) (50-75) % Lymph % (Auto) (25-40) % [place] % (Auto) (3-14) % Eos % (Auto) (2-4) % Baso % (Auto) (0-2) % Neut # (Auto) (3051-6584) /uL Lymph # (Auto) (1174-8401) /uL [place] # (Auto) (0-900) /uL Eos # (Auto) (0-450) /uL Baso # (Auto) (0-100) /uL Sodium (137-145) mmol/L Potassium (3.4-5.1) mmol/L Chloride (98-107) mmol/L Carbon Dioxide (22-32) mmol/L BUN (7-17) mg/dL Creatinine (0.52-1.04) mg/dL Estimated GFR (>60) mL/min BUN/Creatinine Ratio (6-22) Glucose (70-100) mg/dL Calcium (8.4-10.2) mg/dL Magnesium (1.6-2.3) mg/dL Total Bilirubin (0.2-1.3) mg/dL AST (14-36) IU/L ALT (9-52) IU/L Alkaline Phosphatase (38-126) U/L Total Protein (6.3-8.2) g/dL Albumin (3.5-5.0) g/dL Globulin (1.7-4.1) g/dL Albumin/Globulin Ratio (1.0-2.8) TSH (0.47-4.68) uIU/mL Urine Opiates Screen Negative (Negative) Ur Oxycodone Screen Negative (Negative) Urine Methadone Screen Negative (Negative) Acetaminophen (10-30) ug/mL Ur Barbiturates Screen Negative (Negative) U Tricyclic Antidepress Negative (Negative) Ur Phencyclidine Scrn Negative (Negative) Ur Amphetamines Screen Negative (Negative) U Methamphetamines Scrn Negative (Negative) Ur MDMA Scrn (Ecstasy) Negative (Negative) U Benzodiazepines Scrn Positive H (Negative) Urine Cocaine Screen Negative (Negative) U Marijuana (THC) Screen Negative (Negative) Ethyl Alcohol 293 mg/dL Urine Dip Bedside Urine Glucose Negative Bedside Urine Bilirubin - Negative Bedside Urine Ketone - Negative Urine Specific [place] 1.010 Bedside Urine Occult Blood - Negative Bedside Urine pH 7.0 Bedside Urine Protein - Negative Bedside Urine Urobilinogen - Negative Bedside Urine Nitrite - Negative Bedside Urine Leukocytes - Negative Esterase Discharge Plan Departure Patient Disposition: Home Clinical Impression: Abnormal thyroid blood test Alcoholic intoxication Qualifiers: Complication of substance-induced condition: uncomplicated Qualified Code(s): F10.920 - Alcohol use, unspecified with intoxication, uncomplicated Discharge Date/Time: 05/04/19 13:00 Interventions: ED Discharge Assessment Last Done: 05/04/19 12:59 Instructions: DI for Alcohol Abuse Activity Restrictions/Additional Instructions: Please consider outpatient rehabilitation again. Your psychiatry/counseling team may be able to help with this if you decide that you are interested. Please also follow up with either [facility] or the [facility] to get established with a new primary care provider. As we talked about, you should also have thyroid test repeated as your test was somewhat abnormal/elevated today. No urgent treatment is needed but this should be rechecked in the next couple of weeks. If you are not able to be seen at the [facility], please call [phone] and let them know you were seen here in the emergency room and need to set up follow-up for primary care. Please return to the ED if you have any acutely worsening symptoms Prescriptions: No Action acetaminophen [Tylenol] 325 mg tablet 650 mg PO Q6H PRNRF: 0 ascorbic acid (vitamin C) 500 mg capsule PO RF: 0 vitamin B complex [B Complex-Vitamin B12] tablet 1 tab PO DAILY RF: 0 vitamin E 200 unit capsule 200 unit PO DAILY RF: 0 acyclovir 400 mg tablet 400 mg PO 5XD RF: 0 cranberry 1 dose PO DAILY RF: 0 tramadol 50 mg Tablet 50 mg PO Q6H PRN (Reason: pain) RF: 0 naproxen 500 mg Tablet 500 mg PO BID RF: 0 gabapentin [Neurontin] 600 mg tablet 600 mg PO TID RF: 0 clonazepam 1 mg tablet 1 mg PO BID PRN (Reason: Anxiety) RF: 0 Vivitrol 380 mg suspension,extended rel recon 380 mg IM Q4W RF: 0 Referrals: [facility] [Provider Group] <Olamide Morrissey DO - Last Filed: 05/06/19 19:25> [facility]: I was immediately available in the department for consultation. This documentation has been reviewed and I agree with assessment and plan. Supervised by Olamide Morrissey DO
[2019-05-04] MEDS: SODIUM CHLORIDE 0.9% 1,000 ML 1000 ML IV (11:25)
[2019-05-04] MEDS: LORazepam 2 MG/ML INJ IV ×2 (11:25→12:27)
[2019-05-04] MEDS: ONDANSETRON 4 MG/2 ML INJ IV (11:25)
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
[2019-05-04 11:32] LABS: Add Manual Diff / Slide Review NO; Basophils Absolute Auto 0 /uL (0-100); Basophils Percent Auto 0.7 % (0-2); Eosinophils Absolute Auto 100 /uL (0-450); Eosinophils Percent Auto 1.5 % (2-4); Hematocrit 43.5 % (36-46); Hemoglobin 14.7 g/dL (12.0-16.0); Lymphocytes Absolute Auto 2600 /uL (1100-4500); Lymphocytes Percent Auto 36.8 % (25-40); Mean Corpuscular HGB Conc 33.8 % (30-36); Mean Corpuscular Hemoglobin 30.3 PG (26-34); Mean Corpuscular Volume 89.7 fL (80-100); Monocytes Absolute Auto 500 /uL (0-900); Neutrophils Absolute Auto 3800 /uL (1500-7000); Platelet Count 271 X10^3/uL (150-400); Red Blood Cell Count 4.85 X10^6/uL (4.0-5.2); Red Cell Distribution Width 14.2 % (11.6-14.8)
[2019-05-04 11:42] LABS: Acetaminophen < 10 ug/mL (10-30); Alanine Aminotransferase 27 IU/L (9-52); Albumin Globulin Ratio 1.7 (1.0-2.8); Alkaline Phosphatase 90 U/L (38-126); Aspartate Aminotransferase 41 IU/L (14-36); Bilirubin Total 0.6 mg/dL (0.2-1.3); Blood Urea Nitrogen 9 mg/dL (7-17); Calcium 9.9 mg/dL (8.4-10.2); Carbon Dioxide 24 mmol/L (22-32); Chloride 110 mmol/L (98-107); Estimated Glomerular Filt Rate > 60.0 mL/min (>60); Globulin 2.9 g/dL (1.7-4.1); Glucose 87 mg/dL (70-100); HEMOLYSIS < 15 (0-50); Potassium 4.1 mmol/L (3.4-5.1); Sodium 147 mmol/L (137-145); Total Protein 7.9 g/dL (6.3-8.2)
[2019-05-04 11:51] LABS: Ethanol (ETOH) 293 mg/dL
[2019-05-04 11:55] LABS: Urine Amphetamines Negative (Negative); Urine Barbiturates Negative (Negative); Urine Benzodiazepines Positive (Negative); Urine Cocaine Negative (Negative); Urine MDMA Negative (Negative); Urine Methadone Negative (Negative); Urine Methamphetamines Negative (Negative); Urine Morphine/Opi cutoff 2000 Negative (Negative); Urine Oxycodone Negative (Negative); Urine Phencyclidine Negative (Negative); Urine Tetrahydrocannabinol Negative (Negative); Urine Tricyclic Antidepressant Negative (Negative)
[2019-05-04] MEDS: MAGNESIUM SULFATE 2 GM, FOLIC ACID 1 MG, THIAMINE 100 MG, MULTIVITAMIN 10 ML in SODIUM ... IV (12:07)
[2019-05-04 12:15] VITALS: BP 130/78; RESP 13; O2SAT 96
[2019-05-04 12:41] LABS: Thyroid Stimulating Hormone 0.23 uIU/mL (0.47-4.68)
[2019-05-04 12:47] VITALS: BP 106/68; PULSE 80; RESP 16; O2SAT 100
--- NOTE | 2019-05-04 12:48 | PC.NURSE ---
1230- Patient becoming agitated with son and friend in the room. Son came out of room concerned she is going to rip her IV out. Asked patient if she would like more Ativan and she said yes. Gave the Ativan per verbal order from provider. Patient is still agitated and saying she needs to smoke. Offered nicotine patch and to get her food, water, and her gabapentin and other morning medications that she typically takes. She declined and wishes to be discharged. Notified provider. Had discussion with patient and provider and will give her resources for establishing a primary care physician and outpatient resources for detox. Patient is agreeable to this plan. Denies suicidality or desire to harm herself or others at time of discharge. She is speaking clearly and coherently and is alert and oriented x3. Walking with steady gait. Patient left the ED stating I'll be right back. Her family is in waiting room to take her home.
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
== END 2019-05-04 13:00 | disposition home or self-care (01) ==
PROVIDERS: Emergency Provider Internal Medicine
DX: R79.89 Other specified abnormal findings of blood chemistry (principal); F10.280 Alcohol dependence with alcohol-induced anxiety disorder
CPT/HCPCS: 36591; 80053; 80305; 80320; 80329; 81003; 82075; 83735; 84443; 85025; 96361; 96374; 96375; 96376; 99282; 99283; 99284; G0480; J2060; J2405; J3475

== ENCOUNTER 2019-05-04 13:52 | Emergency (ER) | payer OTHER, MEDICAID, SELFPAY ==
--- NOTE | 2019-05-04 14:03 | ED.MEDCLEAR ---
HPI - Medical Clearance <Genevieve Villarreal PA-C - Last Filed: 05/04/19 20:41> General Chief complaint: Medical Clearance Stated complaint: etoh Time Seen by Provider: 05/04/19 14:03 Source: patient Mode of arrival: ambulatory Limitations: other (Intoxication) History of Present Illness HPI Narrative: This 43-year-old female returns to ED after a short time after she left again requesting referral for detox services for alcohol abuse. She admits that she did go and have a drink and that she wanted to smoke a cigarette. She denies any other ingestions. She states ?I need help?. Her friend is here with her and willing to drive her to detox if a bed is still available Home Medications Medication Instructions Recorded Confirmed cranberry 1 dose PO DAILY 11/17/18 03/10/19 acetaminophen 325 mg tablet 650 mg PO Q6H PRN 03/10/19 03/10/19 acyclovir 400 mg tablet 400 mg PO 5XD 03/10/19 03/10/19 ascorbic acid (vitamin C) 500 mg mg PO cap 03/10/19 03/10/19 capsule vitamin B complex tablet 1 tab PO DAILY 03/10/19 03/10/19 vitamin E 200 unit capsule 200 unit PO DAILY 03/10/19 03/10/19 clonazepam 1 mg PO BID PRN 05/04/19 05/04/19 gabapentin [Neurontin] 600 mg PO TID 05/04/19 05/04/19 naltrexone microspheres [Vivitrol] 380 mg IM Q4W 05/04/19 05/04/19 naproxen 500 mg PO BID 05/04/19 05/04/19 tramadol 50 mg PO Q6H PRN 05/04/19 05/04/19 Allergies Allergy/AdvReac Type Severity Reaction Status Date / Time Sulfa (Sulfonamide Allergy Verified 05/04/19 13:55 Antibiotics) Review of Systems <Genevieve Villarreal PA-C - Last Filed: 05/04/19 20:41> Review of Systems ROS Unobtainable: All systems reviewed & are unremarkable except as noted in HPI and below PFSH <Genevieve Villarreal PA-C - Last Filed: 05/04/19 20:41> Surgical History Hx of hysterectomy (Resolved) Hx of tonsillectomy (Resolved) Family History Mother No problems noted. Other Family history non-contributory Social History Smoking Status: Current every day smoker Social History Smoking Status: Current every day smoker Exam <Genevieve Villarreal PA-C - Last Filed: 05/04/19 20:41> Narrative Exam Narrative: GENERAL APPEARANCE: Patient somewhat tearful/labile, in NAD HEENT: PERRL, EOMI, normal oropharynx NECK: Supple LUNGS: Clear to auscultation bilaterally. HEART: Rate and rhythm regular without murmur, normal S1 and S2, no S3 or S4. ABDOMEN: Soft, NT, ND, + BS x 4 quadrants NEUROLOGIC: Alert and oriented, normal speech, gait and coordination, no tremor Initial Vital Signs Initial Vital Signs: Vital Signs Temperature 98.4 F 05/04/19 14:07 Pulse Rate 108 H 05/04/19 14:07 Respiratory Rate 18 05/04/19 14:07 Blood Pressure 126/67 05/04/19 14:07 Pulse Oximetry 98 05/04/19 14:07 <Olamide Morrissey DO - Last Filed: 05/06/19 19:28> Initial Vital Signs Initial Vital Signs: Vital Signs Temperature 98.4 F 05/04/19 14:07 Pulse Rate 108 H 05/04/19 14:07 Respiratory Rate 18 05/04/19 14:07 Blood Pressure 126/67 05/04/19 14:07 Pulse Oximetry 98 05/04/19 14:07 MDM - Medical Clearance <Genevieve Villarreal PA-C - Last Filed: 05/04/19 20:41> Lab Data Attestation: I reviewed the patient's lab results. Lab Results 05/04/19 Range/Units 14:12 Urine Opiates Screen Negative (Negative) Ur Oxycodone Screen Negative (Negative) Urine Methadone Screen Negative (Negative) Ur Barbiturates Screen Negative (Negative) U Tricyclic Antidepress Negative (Negative) Ur Phencyclidine Scrn Negative (Negative) Ur Amphetamines Screen Negative (Negative) U Methamphetamines Scrn Negative (Negative) Ur MDMA Scrn (Ecstasy) Negative (Negative) U Benzodiazepines Scrn Positive H (Negative) Urine Cocaine Screen Negative (Negative) U Marijuana (THC) Screen Negative (Negative) Point of Care Testing Breathalizer 0.177 MDM Narrative Medical decision making narrative: Patient has returned again requesting referral for detox. [facility] with [facility] intake and they do have a bed for her. She is here with a reliable friend who can drive her. She did become anxious prior to discharge wanting to go out and have a cigarette. Nicotine patch has been placed as well. She did not have any changes on her urine drug screen on return. Cleared for detox and her friend will drive her to [facility] (she was supposed to speak with the admitting nurse at 4:00 a.m., but at that time nurse was not available patient had not spoken with her at the time of discharge). We did advise her that since she did not wait for final authorization a bed might not be available however we cannot keep her here at this point if she desires d/c <Olamide Morrissey, DO - Last Filed: 05/06/19 19:28> Lab Data Lab Results 05/04/19 Range/Units 14:12 Urine Opiates Screen Negative (Negative) Ur Oxycodone Screen Negative (Negative) Urine Methadone Screen Negative (Negative) Ur Barbiturates Screen Negative (Negative) U Tricyclic Antidepress Negative (Negative) Ur Phencyclidine Scrn Negative (Negative) Ur Amphetamines Screen Negative (Negative) U Methamphetamines Scrn Negative (Negative) Ur MDMA Scrn (Ecstasy) Negative (Negative) U Benzodiazepines Scrn Positive H (Negative) Urine Cocaine Screen Negative (Negative) U Marijuana (THC) Screen Negative (Negative) Point of Care Testing Breathalizer 0.177 Discharge Plan Departure Patient Disposition: Home Clinical Impression: Alcohol dependence syndrome Qualifiers: Substance use status: alcohol-induced anxiety disorder Qualified Code(s): F10.280 - Alcohol dependence with alcohol-induced anxiety disorder Discharge Date/Time: 05/04/19 16:22 Interventions: ED Discharge Assessment Last Done: 05/04/19 16:18 Instructions: DI for Alcohol Abuse Activity Restrictions/Additional Instructions: You have been medically cleared for detox treatment. Please go to [facility] on [address] from here (have your friend drive you directly there). Prescriptions: No Action acetaminophen [Tylenol] 325 mg tablet 650 mg PO Q6H PRNRF: 0 ascorbic acid (vitamin C) 500 mg capsule PO RF: 0 vitamin B complex [B Complex-Vitamin B12] tablet 1 tab PO DAILY RF: 0 vitamin E 200 unit capsule 200 unit PO DAILY RF: 0 acyclovir 400 mg tablet 400 mg PO 5XD RF: 0 cranberry 1 dose PO DAILY RF: 0 tramadol 50 mg Tablet 50 mg PO Q6H PRN (Reason: pain) RF: 0 naproxen 500 mg Tablet 500 mg PO BID RF: 0 gabapentin [Neurontin] 600 mg tablet 600 mg PO TID RF: 0 clonazepam 1 mg tablet 1 mg PO BID PRN (Reason: Anxiety) RF: 0 Vivitrol 380 mg suspension,extended rel recon 380 mg IM Q4W RF: 0 Referrals: [facility] [Other] <Olamide Morrissey DO - Last Filed: 05/06/19 19:28> Cosign ED Attending Cosignature Attestation: I was immediately available in the department for consultation. This documentation has been reviewed and I agree with assessment and plan. Supervised by Olamide Morrissey DO
[2019-05-04 14:07] VITALS: BP 126/67; PULSE 108; RESP 18; TEMP 36.9; O2SAT 98; BMI 18.1
--- NOTE | 2019-05-04 14:11 | PC.NURSE ---
patient states shes back for help pt refused detox today, during previous visit. pt arrives and reports we did not tell her there was a bed available, both the patients nurse and provider from todays earlier visit addressed this statement, reporting they had indept conversations regarding the detox option. pt reports she left and drank more alcohol.
[2019-05-04 14:24] LABS: Urine Amphetamines Negative (Negative); Urine Barbiturates Negative (Negative); Urine Benzodiazepines Positive (Negative); Urine Cocaine Negative (Negative); Urine MDMA Negative (Negative); Urine Methadone Negative (Negative); Urine Methamphetamines Negative (Negative); Urine Morphine/Opi cutoff 2000 Negative (Negative); Urine Oxycodone Negative (Negative); Urine Phencyclidine Negative (Negative); Urine Tetrahydrocannabinol Negative (Negative); Urine Tricyclic Antidepressant Negative (Negative)
[2019-05-04] MEDS: NICOTINE 21 MG PATCH TOP (14:36)
--- NOTE | 2019-05-04 14:48 | CM.SWNOTE ---
AMPHIBIAN CREWMEMBER Note: Received call from ED staff indicating that this 43yr old female returned to [facility] for detox for alcohol. Apparently, patient brought back to ED with her friend/Danny ph# [phone]. Patient emotional at time of AMPHIBIAN CREWMEMBER's visit. Patient does report that she wants to detox from alcohol but currently is hurting. Patient left emergency room around 1:00pm and returned about 1 hour later. Danny reports that he believes patient drank a half of a beer during that time. Patient asks AMPHIBIAN CREWMEMBER if she can smoke. AMPHIBIAN CREWMEMBER reports to patient that if she wants to go to detox she will have to refrain from smoking while in [facility]. Policy does not allow patient's the ability to go outside and smoke. Patient offered nicotine patch? Patient agreeable. AMPHIBIAN CREWMEMBER asked PSYCHOLOGY PROFESSOR/Genevieve Alejo for order. Patch applied. Patient in agreement to speak with [facility] intake about obtaining detox bed. AMPHIBIAN CREWMEMBER placed call to [facility] spoke with Breanna. She confirms that they have already done intake with patient the first time she was in our ED today. Breanna reports patient did not appear to be very willing to detox at that time? Patient notified of the above and reports that she misunderstood and thought that [facility] did not have bed. AMPHIBIAN CREWMEMBER asked patient to call [facility] back to discuss possibility of patient obtaining detox bed today/tonight. Patient completed call to [facility] with friend present. AMPHIBIAN CREWMEMBER spoke with Breanna after call and confirmed patient had breathalyzer done which was 0.177. Earlier blood work for alcohol was 2.4. Patient somewhat sleepy during interview with AMPHIBIAN CREWMEMBER and [facility]. Breanna requesting that patient call back facility today at 4:00pm. They do anticipate that they can accept but would like to speak with patient again at shift change. RN covering at 4:00pm is Genet. RN/Haley and PSYCHOLOGY PROFESSOR/Genevieve notified. Patient's friend Danny appears to be good support and agreeable to stay with patient until bed available. Patient told that if she chooses to leave again that she most likely will not get bed at [facility]. P: Left email/text for PM/AMPHIBIAN CREWMEMBER Minerva to follow up. Patient instructed to call [facility] at 4:00pm for bed. Unclear if they would like patient more coherent prior to acceptance. PSYCHOLOGY PROFESSOR aware and does not plan to provide her with any unnecessary medications. Although patient continues to request. ABELARDO Johnson
[2019-05-04 15:40] VITALS: PULSE 86; O2SAT 97
--- NOTE | 2019-05-04 15:47 | PC.NURSE ---
pt refusing to keep pulse ox on her finger. pt states that was not on my finger pt's friend at bedside tells her yes it was pt asking to smoke. pt informed she can not smoke on hospital property, she was already informed of this facility regulation, that is why she has a nicotine patch. pt then rudly states they let you smoke there but you cant here again explained to patient this is a hospital not the detox facility. friend at bedside explaining situation to pt. pt states so i just leave then? explained to patient again that is not the appropriate option for risk of loosing her detox bed. pt layed back down in bed.
== END 2019-05-04 16:22 | disposition home or self-care (01) ==
PROVIDERS: Emergency Provider Internal Medicine
DX: F10.280 Alcohol dependence with alcohol-induced anxiety disorder (principal)
CPT/HCPCS: 80305; 82075; 99283